=== PATIENT | female | born 1955 | race Caucasian/White ===

== ENCOUNTER 2018-02-03 14:26 | Observation (INO) | payer BC, OTHER ==
--- NOTE | 2018-02-03 17:38 | HP ---
PRIMARY CARE PHYSICIAN: Dr. Miquel Olmstead. CHIEF COMPLAINT: Dizziness and frequent falls. HISTORY OF PRESENT ILLNESS: Ms. Kang is a very pleasant 62-year-old female that has a history of caty betes mellitus, type 1. She also has a history of hypothyroidism. She says that, early this morning , she began feeling like the room was spinning. She says she would feel this way whether she moved o r did not move. Prior to this, in the last few days leading up to this, she would feel a little bit dizzy off and on, but usually it would only occur when she stood up. She had fallen a few times dorothy ier in the month. One time she fell and fractured her nose. She is not sure what happened. She bel ieves that her blood sugar might have gotten low in the middle of the night and she tried to get up, but she remembers waking up with blood all over the pillow and her head was wedged between the bed an d the dresser. Her daughter had to try to get her up and this is when she believes she fractured the ribs the first time. Then, she had another fall in the middle of the night and this resulted in mor e fractures of the ribs. She also says about a month or so ago, she did have some sinus infection an d she was treated with a Z-Jase, but those symptoms have resolved and she also feels like her problems could have been triggered by the daylight savings time change, as she says this happens to her every year and her blood sugars have gone out of control partially as a result of the daylight savings devin nge and then also as a result of changing her insulin from Humalog to NovoLog. The patient denies an y chest pains or shortness of breath. She denies any weakness in her upper extremities or lower extr emities, but she does feel off balance when she tries to walk. REVIEW OF SYSTEMS: Constitutional: Again, no fevers, no chills, no night sweats, no weight loss. H EENT: She denies any headache. She has had some blurred vision. She attributes to elevated blood g lucose. She had some sinus symptoms, but this is better after treatment. There was primarily nasal congestion, but there is no rhinorrhea currently. No sore throat, no neck pain, no adenopathy. Pulm onary: No hemoptysis, no cough, no wheezing. Cardiovascular: She denies any chest pain, no PND, no orthopnea. No lower extremity edema. Gastrointestinal: No abdominal pain, no nausea, no vomiting. She had some constipation, but this has resolved. No blood in the stools. Genitourinary: No urin priscilla frequency, hematuria, no hesitancy. Neurologic: No focal weakness or numbness, no seizures. PSYCHIATRIC: No symptoms of anxiety or depression. SKIN AND INTEGUMENT: No skin changes. No rash. PAST MEDICAL HISTORY: Significant for diabetes mellitus, type 1, with an insulin pump; hypothyroidis m; and she is on medication for blood pressure, but did not know if she has high blood pressure. PAST SURGICAL HISTORY: She has had a partial thyroidectomy, a lipoma removed from her arm, hysterect jamie in 2000, bowel resection and endometriosis with a surgery for bowel loops resection and also rese ction of endometriosis and reconstructive surgery. ALLERGIES: CODEINE AND IODINE. SOCIAL HISTORY: She is . She has 3 children. She is a nonsmoker, nondrinker. FAMILY HISTORY: Significant for multiple cancers in both parents. Her mother had 5 different types of cancer including bladder cancer, ovarian cancer, cervical cancer, skin cancer, and kidney cancer a nd her father had lung cancer and skin cancer. Her grandmother had colon cancer. CURRENT MEDICATIONS: Maxzide 37.5/25 daily, levothyroxine 125 mcg daily, red yeast rice daily, vitam in D3, biotin, Benadryl, Humalog as directed, aspirin 81 mg daily, Zetia 10 mg daily, alendronate 70 mg every week. PHYSICAL EXAMINATION: GENERAL: She is alert and oriented. She appears to be in no acute distress. VITAL SIGNS: Stable, blood pressure was 147/74, heart rate 66, respiratory rate is 16, temperature i s 98.4. HEENT: Pupils are equal, round, and reactive. Extraocular muscles are intact. Her sclerae are anic teric. There was no nystagmus. Throat: There is no erythema, no exudates. Uvula is midline. NECK: No adenopathy, no bruits. LUNGS: Clear to auscultation. There is no wheezing, no rales. CARDIOVASCULAR: She had a normal S1 and S2. I did not appreciate an S3 or S4. No murmurs, clicks, or rubs. ABDOMEN: Soft, nontender, nondistended. Positive for bowel sounds. There is no rebound, no guardin g. EXTREMITIES: There is no clubbing or cyanosis, no edema. NEUROLOGICALLY: Her cranial nerves II-XII are grossly intact. Muscle strength is 5/5 in both her up per and lower extremities. She was able to do [id number] without difficulty and also cjyysj-es-[id number] e was intact. Romberg was not performed, but she was reported to have a positive Romberg and a wide- based gait by the ER physician. LABORATORY RESULTS: Her white blood cell count is 6.2, hemoglobin 13.6, hematocrit is 39.6, platelet count is 207. Sodium 139, potassium 4.1, chloride is 100, CO2 is 29, BUN of 18, creatinine 1.2, glu cose is initially 307. Urinalysis was essentially negative. EKG was sinus rhythm. She had low volt age. The rate was 70. She had some poor R-wave progression in V1 through V3. ASSESSMENT AND PLAN: This is a pleasant 62-year-old female that presents with, 1. Dizziness, vertigo, and falls. She had a CT scan done in the outside ER, which was negative for evidence of infarct; however, her symptoms are more consistent with possible posterior circulation pr oblem and an MRI would be a better test to assess this. She also has risk factors including type 1 d iabetes for many years. She will therefore be placed on the stroke unit under observation. We will get an MRI of the brain to assess the cerebellum for stroke and then also get a CT angiogram to asses s her posterior circulation. Since there was some low voltage on EKG as well as some poor R-wave pro gression in V1 through V3, we will go ahead and order an echocardiogram as well, and with diabetes, s he could have ischemic heart disease, which can be silent. 2. For diabetes mellitus, allow her to use her diabetic pump and self correct. We can also have a b ackup with a sliding scale and consult Neurology if needed, based on the results of her test.
[2018-02-03] MEDS ORDERED: Milk Of Magnesia 30 ML UDCUP PO PRN (17:46)
[2018-02-03] MEDS ORDERED: hydrALAZINE 20 MG/ML VIAL SLOW IVP PRN (17:46)
[2018-02-03] MEDS ORDERED: Mag-Al 1200 mg/1200 mg/30 ML UDCUP PO PRN (17:46)
[2018-02-03] MEDS ORDERED: Acetaminophen 325 MG TAB PO PRN (17:46)
[2018-02-03] MEDS ORDERED: Dextrose 5% in Water 1,000 ML IV PRN (17:46)
[2018-02-03] MEDS ORDERED: HumaLOG 300 UNITS/3 ML VIAL SC PRN ×2 (17:46)
[2018-02-03] MEDS ORDERED: Dextrose 50% Abboject 50 ML SYRINGE SLOW IVP PRN (17:46)
[2018-02-03 17:48] VITALS: BMI 23.7
[2018-02-03] MEDS: predniSONE 50 MG TAB PO SCH (20:25)
[2018-02-03] MEDS: Atorvastatin Calcium 10 MG TAB PO SCH (20:27)
[2018-02-04] MEDS: predniSONE 50 MG TAB PO SCH ×2 (02:05→08:30)
[2018-02-04 05:45] LABS: #Lymphocytes 0.7 thou/uL (1.20-3.40); #Monocytes 0.1 thou/uL (0.11-0.59); #Neutrophils 5.1 thou/uL (1.40-6.50); %Basophils 0.4 % (0.0-1.0); %Eosinophils 0.3 % (0.0-10.0); %Lymphocytes 11.8 % (21.0-51.0); %Neutrophils 86.5 % (42.0-75.0); Hemoglobin 14.2 g/dL (12.0-16.0); Mean Corpuscular HGB CONC 33.4 g/dL (32.0-36.0); Mean Corpuscular Volume 89.9 fl (81.0-99.0); Mean Platelet Volume 8.5 fL (7.4-10.4); Platelet Count 225 thou/uL (130-400); RBC Distribution Width 12.5 % (11.5-14.5); Red Blood Cell (RBC) Count 4.72 mill/uL (4.20-5.40); White Blood Cell (WBC) Count 5.9 thou/uL (4.8-10.8)
[2018-02-04 06:10] LABS: Anion Gap 8 mmol/L (10-20); BUN (Urea Nitrogen) 24 mg/dL (9.8-20.1); Calc. Creatinine Clearance 60 mL/min (70-130); Calcium 9.3 mg/dL (7.8-10.44); Carbon Dioxide 30 mmol/L (23-31); Cardiac Risk 3.2 (Less than 4.5); Chloride 103 mmol/L (98-107); Cholesterol 240 mg/dl (< 200 Desired); Estimated GFR-MDRD 53; Glucose 217 mg/dL (80-115); HDL Cholesterol 74 mg/dL (>60 Neg Risk); LDL Cholesterol, Calculated 156 mg/dL; Potassium 4.1 mmol/L (3.5-5.1); Sodium 137 mmol/L (136-145); Triglycerides 49 mg/dL (Less than 150)
[2018-02-04] MEDS ORDERED: diphenhydrAMINE 50 MG CAP PO SCH (08:00)
[2018-02-04] MEDS ORDERED: Gadobenate Dimeglumine 529 MG/1 ML (20ML VIAL) ONE (08:12)
[2018-02-04] MEDS: Enoxaparin Sodium 40 MG/0.4 ML SYRINGE SC SCH (08:30)
[2018-02-04] MEDS: Aspirin 325 mg Enteric Coated Tablet PO SCH (08:30)
--- NOTE | 2018-02-04 13:12 | MRI ---
MRI OF BRAIN NONCONTRAST: INDICATION: TIA, the patient had a prior fall with injury. FINDINGS: There is no evidence of ventriculomegaly or midline shift. No intracranial mass effect or acute terr itorial infarction. There is multifocal signal abnormality of the brain parenchyma, the most notable of which involves the cortex and subcortical white matter of the mid to posterior left temporal lobe . There is no intracranial hemorrhagic susceptibility visualized. IMPRESSION: Nonspecific foci of signal alteration noted at the left mid to posterior temporal lobe. Recommend a followup postcontrast brain MRI to further evaluate. POS: SADE
--- NOTE | 2018-02-04 13:22 | CT ---
CT HEAD NONCONTRAST CTA [place] WITH 3D VOLUME RENDERING CTA NECK WITH 3D VOLUME RENDERING: CLINICAL HISTORY: TIA, CVA. Vertigo. Ference is made to preceding head CT of previous day. FINDINGS: A noncontrast head CT reveals no ventriculomegaly, mass effect, or midline shift. There is a subtle patchy area of decreased attenuation involving the mid left temporal lobe. Additional subtle areas o f cerebral white matter hypodensities are present. Evaluation of CTA portion of the neck reveals a patent aortic arch where visualized as well as patent great vessel origins that emanate from the aortic arch. Bilateral subclavian arteries are patent. There is no high-grade focal stenosis of the bilateral common or cervical internal carotid arteries. There is a dominant left vertebral artery. Vertebral arteries reveal no obvious stenosis or occlusi on. CTA imaging of the [place] reveals a -type variant circulation on the right. There is no high-grade stenosis or occlusion. No discrete aneurysm is seen involving the [place] wit hin limitations. There is a subtle area of hypodensity of the mid left temporal lobe with mild increased vascularity. This may be on the basis of vascular malformation and possibly associated steal phenomenon. There is granulomatous calcification of the right upper lung zone. Evidence of prior thyroid surgery is seen. Incidental note of mildly prominent regional lymph nodes, nonspecific. IMPRESSION: 1. Subtle area of patchy low attenuation of the mid left temporal lobe with surrounding increased va sculature which may be on the basis of vascular malformation and associated steal phenomenon, or alte rnatively this could relate to an underlying malignancy with associated angiogenesis. 2. There is otherwise no significant abnormality of the [place] or major arterial system of the neck identified. POS: SADE
--- NOTE | 2018-02-04 15:38 | PDOC.PN ---
- Subjective Encounter Start Date: 02/04/18 Encounter Start Time: 15:36 Ms. Kang was seen today in follow-up of ataxia. She says she was more steady on her feet today. She is also less dizzy. - Objective Resuscitation Status: Resuscitation Status FULL:Full Resuscitation MAR Reviewed: Yes Vital Signs & Weight: Vital Signs (12 hours) Temp Pulse Resp BP Pulse Ox 02/04/18 12:00 97.6 F 77 16 121/62 96 02/04/18 09:36 97.7 F 96 18 140/63 97 02/04/18 08:00 97.7 F 96 18 02/04/18 03:55 97.6 F 78 18 117/59 L 97 Weight Weight 154 lb I&O: 02/03/18 02/04/18 02/05/18 06:59 06:59 06:59 Intake Total 420 Balance 420 Result Diagrams: 02/04/18 05:18 02/04/18 05:18 Additional Labs: Accuchecks 02/04/18 02/04/18 02/04/18 14:22 11:47 06:02 POC Glucose 516 H 416 H 196 H 02/03/18 02/03/18 23:49 20:57 POC Glucose 137 H 71 Phys Exam - Physical Examination HEENT: PERRLA Respiratory: no wheezing, no rales, no rhonchi, clear to auscultation bilateral Cardiovascular: RRR, no significant murmur, no rub Gastrointestinal: soft, non-tender, positive bowel sounds Musculoskeletal: no edema Dx/Plan (1) Vertigo Code(s): R42 - DIZZINESS AND GIDDINESS Status: Acute (2) Diabetes mellitus type 1, uncontrolled Code(s): E10.65 - TYPE 1 DIABETES MELLITUS WITH HYPERGLYCEMIA Status: Acute (3) Hypothyroidism Code(s): E03.9 - HYPOTHYROIDISM, UNSPECIFIED Status: Acute - Plan * Vertigo- discussed with Dr. Martinez. Her symptoms are likely related to her elevated blood glucose * CTA and MRI findings were noted- she will have MRI with contrast to clarify. * DM- very labile- she will correct using the pump, and discuss adjusting her pump with Dr. Olmstead * Continue PT/OT
--- NOTE | 2018-02-04 15:43 | CON ---
DATE OF CONSULTATION: 02/04/2018 REFERRING PHYSICIAN: Luis Alfredo Vargas M.D. REASON FOR CONSULTATION: Vertigo and dizziness. HISTORY OF PRESENT ILLNESS: Ms. Kang is a pleasant 62-year-old female who has been concern ed for evaluation of dizziness and vertigo. She reports that on yesterday she woke up and had noted sudden onset of dizziness and vertigo-type sensation. She felt like everything was spinning. She wa s not able to stand up and maintain her balance and she would fall back down onto the bed. She had m easured her blood glucose, which came up very high and it was not recordable onto a monitor which usu ally suggests blood glucoses more than 600. She states that over the past 1 to 1-1/2 year, she has b een having very fluctuating levels of blood glucose. This has started after her insurance stopped gi ving her Humalog and had to be switched over to NovoLog from which she has not been well controlled. She states that about a month ago, she had gotten up to go to bathroom and fell down, which resulted in laceration to the left wrist and rib fractures on her right side. She had measured her blood glu cose at that time which was extremely low. Two weeks ago, she had another episode where she had fell , which resulted in nasal bone fracture and laceration along with rib fractures on the left side. Ag ain, this time her blood sugar was noted to be extremely low. She states that since her blood sugar has not been well maintained, she has these episodes of dizziness and vertigo-type sensation and diff iculty with gait imbalance. She has had numerous falls due to these episodes. She states that her b lood sugar has been under well control until the Humalog was changed to the NovoLog. She currently d enies any headache, chest pain, palpitation, numbness, tingling or weakness. Her symptoms of dizzine ss and vertigo have improved. PAST MEDICAL HISTORY: Significant for type 1 diabetes with insulin pump, hypothyroidism and hyperten ander. PAST SURGICAL HISTORY: Significant for partial thyroidectomy, lipoma removal, hysterectomy, bowel re section, reconstruction surgery for endometriosis. SOCIAL HISTORY: She denies smoking, alcohol use, or illicit drug use. She is currently working. FAMILY HISTORY: Noncontributory. CURRENT MEDICATIONS: Please review MAR. ALLERGIES: Include CODEINE, IODINATED CONTRAST AGENT, SHELL FISH, DAIRY PRODUCTS. REVIEW OF SYSTEMS: As mentioned above in the HPI, otherwise negative. PHYSICAL EXAMINATION: VITAL SIGNS: Blood pressure of 121/62, pulse of 77, temperature of 97.6, respirations of 16, O2 sats of 96% on room air. GENERAL: Well-developed, well-nourished female in no apparent distress. RESPIRATORY: Clear to auscultation bilaterally. CARDIOVASCULAR: Regular rate and rhythm. NEUROLOGIC: Mental status: The patient is awake, alert, and oriented x3. Speech and language: Flu ent speech. Cranial nerves: Pupils are 3 mm and reactive. Visual lee are intact. External musc les are intact. No nystagmus. Face is symmetric. Tongue and uvula are midline. Motor exam showed normal tone and bulk with a 5/5 strength in both upper and lower extremities. Sensory: Sensation is intact and symmetric. Deep tendon reflexes 2+ flexion with upper and lower extremities. Babinski: Plantar responses flexion bilaterally. Coordination intact to [id number]-[id number] and finger tapping bilaterally. LABORATORY DATA: Reviewed, which included CBC and CMP, which is significant for glucose of 560, tota l cholesterol of 240, LDL of 156, HDL of 74, triglycerides of 49, otherwise unremarkable. IMAGING STUDIES: MRI brain without contrast was reviewed which showed no acute intracranial artery. There is signal alteration noted in the left mid to posterior temporal lobe. CT angiogram of the he ad and neck were reviewed, which showed no acute intracranial or extracranial vascular abnormality. There is a subtle area of patchy low attenuation in the mid left temporal lobe with surrounding incre ased vasculature which may be suggestive of a vascular malformation. IMPRESSION: 1. Vertigo. 2. Hyperglycemia. ASSESSMENT AND PLAN: Ms. Kang is a pleasant 62-year-old female who presented with episodes of vertigo and dizziness. She had this episode in conjunction with severely elevated blood sugar. In my opinion, her symptoms are likely contributed by elevated blood glucose. I had a long discussio n with her and explained that she needs to discuss with her primary care physician to adjust her insu loraine pump to have a better control of her blood glucose. I would recommend continuing her on aspirin 81 mg daily for secondary stroke prevention. She may need to be started on an antihyperlipidemic age nt either atorvastatin or rosuvastatin to control her elevated cholesterol. We will order MRI brain with contrast as recommended by Radiology; however, in my opinion, this is likely secondary to vascul ar malformation. Continue supportive care. Thank you for consultation.
[2018-02-04] MEDS: Atorvastatin Calcium 10 MG TAB PO SCH (20:31)
[2018-02-04] MEDS ORDERED: Temazepam 15 MG CAP PO SCH (22:00)
--- NOTE | 2018-02-04 22:46 | MRI ---
MRI OF THE BRAIN WITH IV CONTRAST: 02/04/18 INDICATION: Followup abnormal lesion seen on the noncontrast MR performed earlier on 02/04/18. TECHNIQUE: Multiplanar and multisequence MRI images were obtained of the brain with 14 mL of Multihance. Comparisons are made with the CTA of the head dated 02/05/08 and a noncontrast MRI of the brain dated 02/04/18. Comparison is also made with a noncontrast CT of the brain dated 02/04/18. FINDINGS: The focal region of cortical and subcortical white matter, T2 hyperintensity involving the left tempo ral lobe measuring 1.9 cm demonstrates no corresponding enhancement. No additional area of enhanceme nt is noted. The visualized IACs appear within normal limits. Septum pellucidum and third ventricle a re midline. Skull and extracranial soft tissues are within normal limits. IMPRESSION: No appreciable enhancement involving the cortical and subcortical white matter T2 hyperintensity invo lving the left mid temporal lobe on the prior examination. There was no associated restricted diffusi on or hemorrhagic changes. There is no associated calcifications. Findings are suspicious for possibl e low grade astrocytoma. An atypical cerebritis is felt to be less likely. Neurology consultation and MRI followup to document stability is recommended. POS: SADE
[2018-02-05] MEDS ORDERED: Levothyroxine Sodium 125 MCG TAB PO SCH (06:00)
[2018-02-05] MEDS: Enoxaparin Sodium 40 MG/0.4 ML SYRINGE SC SCH (08:38)
[2018-02-05] MEDS: Aspirin 325 mg Enteric Coated Tablet PO SCH (08:38)
[2018-02-05 11:37] VITALS: TEMP 97.2
[2018-02-05 12:12] VITALS: BP 120/56
--- NOTE | 2018-02-05 12:35 | PDOC.PN ---
- Subjective Encounter Start Date: 02/05/18 Encounter Start Time: 09:15 Subjective: no weakness or dizziness, is amb independently in hallway -: wants to go home - Objective Resuscitation Status: Resuscitation Status FULL:Full Resuscitation MAR Reviewed: Yes Vital Signs & Weight: Vital Signs (12 hours) Temp Pulse Pulse Pulse Resp BP BP 02/05/18 11:15 97.2 F L 73 17 124/58 L 02/05/18 08:50 84 84 120/56 L 02/05/18 08:02 97.8 F 75 16 02/05/18 08:00 97.8 F 75 16 02/05/18 04:29 98.1 F 71 16 BP BP Pulse Ox 02/05/18 11:15 02/05/18 08:50 143/63 H 02/05/18 08:02 02/05/18 08:00 117/58 L 98 02/05/18 04:29 135/72 98 Weight Weight 154 lb I&O: 02/04/18 02/05/18 02/06/18 06:59 06:59 06:59 Intake Total 420 640 Balance 420 640 Result Diagrams: 02/04/18 05:18 02/04/18 05:18 Additional Labs: Accuchecks 02/05/18 02/05/18 02/05/18 11:17 04:35 00:39 POC Glucose 355 H 199 H 330 H 02/04/18 02/04/18 21:36 14:22 POC Glucose 351 H 516 H Phys Exam - Physical Examination HEENT: PERRLA, moist MMs Neck: no JVD, supple Respiratory: no wheezing, no rales Cardiovascular: RRR, no significant murmur Gastrointestinal: soft, non-tender, positive bowel sounds Musculoskeletal: no edema, pulses present Neurological: non-focal, moves all 4 limbs Psychiatric: A&O x 3 Dx/Plan (1) Dizziness Code(s): R42 - DIZZINESS AND GIDDINESS Status: Resolved (2) Dyslipidemia Code(s): E78.5 - HYPERLIPIDEMIA, UNSPECIFIED Status: Chronic (3) Diabetes mellitus type 1, uncontrolled Code(s): E10.65 - TYPE 1 DIABETES MELLITUS WITH HYPERGLYCEMIA Status: Chronic Qualifiers: Diabetes mellitus complication status: with hyperglycemia Qualified Code(s) : E10.65 - Type 1 diabetes mellitus with hyperglycemia (4) Hypothyroidism Code(s): E03.9 - HYPOTHYROIDISM, UNSPECIFIED Status: Chronic Qualifiers: Hypothyroidism type: unspecified Qualified Code(s): E03.9 - Hypothyroidism , unspecified - Plan hemo/neurostable -: dc pt home -: counselled reg hypoglycemia * . Review of Systems - Medications/Allergies Allergies/Adverse Reactions: Allergies Allergy/AdvReac Type Severity Reaction Status Date / Time codeine Allergy Verified 02/03/18 17:50 Iodinated Contrast- Oral and Allergy Verified 02/03/18 18:34 IV Dye shellfish derived Allergy Verified 02/03/18 17:52
--- NOTE | 2018-02-05 20:21 | DIS ---
DATE OF ADMISSION: 02/03/2018 DATE OF DISCHARGE: 02/05/2018 DISCHARGE DISPOSITION: To home. PRIMARY DISCHARGE DIAGNOSIS: Dizziness, resolved. SECONDARY DISCHARGE DIAGNOSES: Dyslipidemia; hypothyroidism; diabetes mellitus type 1, which is labile. PROCEDURES DONE DURING HOSPITALIZATION: The patient has had MRI brain without contrast done, showed nonspecific foci of signal alteration seen in left mid to posterior temporal lobe. She has had MRI brain with contrast done, showed there was no appreciable enhancement involving cortical and subcortical white matter, T2 hyperintensity in the left mid temporal lobe. There is no restricted diffusion or hemorrhagic changes seen. Findings were suspicious for possible low-grade astrocytoma. The patient had a CT angiogram of the brain done, which showed subtle area of patchy low attenuation of the mid left temporal lobe with surrounding increased vasculature, which may be on the basis of vascular malformation and associated steal phenomenon. There is no significant abnormality of [place] or major arterial system of the neck identified. Echo with 2D Doppler showed an EF of 60%-65%. There was no thrombus seen in the cardiac chambers. H&H 14 and 42, platelet count 225. Total cholesterol 240, triglycerides 49, LDL 156, HDL 74. DISCHARGE MEDICATIONS: Aspirin 81 mg p.o. daily; alendronate 70 mg p.o. once a week; Lipitor 20 mg p.o. daily; vitamin D3, 5000 units p.o. at bedtime; Zetia 10 mg p.o. at bedtime; NovoLog insulin pump; levothyroxine 125 mcg p.o. daily; multivitamin 1 tab daily. ALLERGIES: CODEINE and IODINE. She is also allergic to SHELLFISH. INPATIENT CONSULTS: Dr. Martinez for Neurology. DISCHARGE PLAN: The patient to follow up with primary care physician in 1 week , Dr. Martinez as advised. BRIEF COURSE DURING HOSPITALIZATION: The patient initially got admitted on the with complaints of dizziness and frequent falls. The patient has had uncontrolled diabetes. She also mentions that she took a dose of steroids, which has made her diabetes very labile since then. Initial MRI brain was suspicious for signal alteration in the left mid to posterior temporal lobe. In view of this, MRI with contrast and CT angio brain imaging were done. 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 During the course of her stay here, the patient's dizziness completely resolved. She is ambulating independently in the hallway. Her diabetes is slowly coming back to her baseline. The patient is manipulating her insulin pump to establish euglycemia. She is clearly aware of hypoglycemia symptoms and carries sugar cubes with her belongings wherever she goes. The patient definitely needs followup with Dr. Martinez in 4-6 weeks, and likely further imaging of the abnormality seen in the temporal lobe. I have d/w and he will arrange for f/u. She is currently hemodynamically and neurologically stable and will be discharged home. Please see a [id number] documentation on [facility] for the day of discharge. BRITTNEYD
== END 2018-02-05 11:23 | disposition home or self-care (01) ==
LOC: ERS 14:26 → INTOOBSV 15:42 → 2SE 15:42
PROVIDERS: ADMIT Internal Medicine; ATTEND Internal Medicine
DX: R42 Dizziness and giddiness (principal); E78.5 Hyperlipidemia, unspecified; E10.65 Type 1 diabetes mellitus with hyperglycemia; E89.0 Postprocedural hypothyroidism; Z96.41 Presence of insulin pump (external) (internal); Z88.5 Allergy status to narcotic agent; Z91.013 Allergy to seafood; Z91.041 Radiographic dye allergy status; Z79.83 Long term (current) use of bisphosphonates; Z79.82 Long term (current) use of aspirin; Z79.899 Other long term (current) drug therapy
CPT/HCPCS: 36415; 36416; 70496; 70498; 70551; 70552; 80048; 80061; 85025; 93306; 96372; 99285; A9579; G0378; G8978-GP-CJ; G8979-GP-CI; J1650

== ENCOUNTER 2018-05-06 17:27 | Emergency (ER) | payer BC ==
[2018-05-06] MEDS ORDERED: Mag-Al Plus 1200 MG/1200 MG/120 MG/30 ML UDCUP ONE (17:53)
[2018-05-06] MEDS ORDERED: Lidocaine Viscous Sol 2% 15 ml UD Cup ONE (17:53)
[2018-05-06] MEDS ORDERED: Famotidine/PF 20 mg/2ml Vial ONE (17:53)
[2018-05-06 18:04] LABS: #Basophils 0.1 thou/uL (0.0-0.2); #Eosinphils 0.4 thou/uL (0.0-0.7); #Lymphocytes 2.2 thou/uL (1.20-3.40); #Monocytes 0.8 thou/uL (0.11-0.59); #Neutrophils 5.5 thou/uL (1.40-6.50); %Basophils 1.3 % (0.0-1.0); %Eosinophils 4.2 % (0.0-10.0); %Lymphocytes 24.9 % (21.0-51.0); %Monocytes 8.5 % (0.0-10.0); %Neutrophils 61.1 % (42.0-75.0); Hemoglobin 14.8 g/dL (12.0-16.0); Mean Corpuscular HGB CONC 35.4 g/dL (32.0-36.0); Mean Corpuscular Hemoglobin 30.7 pg (27.0-31.0); Mean Corpuscular Volume 86.6 fL (78.0-98.0); Mean Platelet Volume 10.7 fL (7.4-10.4); Platelet Count 178 thou/uL (130-400); RBC Distribution Width 11.6 % (11.5-14.5); Red Blood Cell (RBC) Count 4.83 mill/uL (4.20-5.40)
[2018-05-06 18:12] LABS: ALT (SGPT) 25 U/L (8-55); AST (SGOT) 22 U/L (5-34); Albumin 4.2 g/dL (3.4-4.8); Alkaline Phosphatase 70 U/L (40-150); Anion Gap 15 mmol/L (10-20); BUN (Urea Nitrogen) 22 mg/dL (9.8-20.1); Bilirubin, Total 0.8 mg/dL (0.2-1.2); CK (CPK) 167 U/L (29-168); CKMB 1.7 ng/mL (0-6.6); Calc. Creatinine Clearance 0 mL/min (70-130); Calcium 9.9 mg/dL (7.8-10.44); Carbon Dioxide 29 mmol/L (23-31); Chloride 96 mmol/L (98-107); Estimated GFR-MDRD 43; Globulin 2.7 g/dL (2.4-3.5); Glucose 230 mg/dL (80-115); Lipase 49 U/L (8-78); Protein, Total 6.9 g/dL (6.0-8.3); Sodium 136 mmol/L (136-145); Troponin I Less than 0.010 ng/mL (< 0.028)
[2018-05-06 18:30] LABS: Bilirubin Negative (Negative); Blood, Urine Trace (Negative); Clarity Hazy (Clear); Glucose, Urine (Dipstick) 250 mg/dL (Negative); Leukocyte Negative (Negative); Nitrite Negative (Negative); Protein, Urine (Dipstick) Negative (Neg-Trace); Specific Gravity, Urine 1.015 (1.005-1.030); Urobilinogen 0.2 mg/dL (0.2-1.0)
[2018-05-06 18:37] LABS: Bacteria/HPF Rare-Few HPF (None Seen); RBC/HPF 0-3 HPF (0-3); WBC/HPF None Seen HPF (0-3)
--- NOTE | 2018-05-06 18:47 | CT ---
CT ABDOMEN WITHOUT CONTRAST CT PELVIS WITHOUT CONTRAST 05/06/18 HISTORY: Pain. Burning sensation. TECHNIQUE: Abdomen and pelvic CT are performed without IV contrast. Contrast was not given due to a reported all ergy. FINDINGS: ABDOMEN CT: Lung bases are clear. Normal heart size. No pericardial effusion. The visualized aorta has a normal c aliber. No periaortic fat stranding. There is symmetric attenuation of the psoas muscles. Contracted gallbladder. Grossly unremarkable solid organs. Evaluation is limited by technique. No mesenteric mass, lymphadenopathy, free air or free fluid. No gastrohepatic, retrocrural, or periportal lymphadenopathy. Bilaterally, no evidence of obstructive uropathy. Limited evaluation of the alimentary canal due to lack of oral contrast. Gastric mucosa, duodenum, an d multiple normal caliber small bowel loops are noted. No definite evidence of small bowel obstructio n. Ileocecal junction is normal. Appendix is not appreciated. No inflammation of the cecal apex. Deco mpressed colon. Scattered fecal material is present. Occasional diverticulum. No diverticulitis. PELVIC CT: No mass, lymphadenopathy, free air or free fluid. The urinary bladder is unremarkable. Surgically abs ent uterus. No lytic or blastic lesions in the osseous structures. IMPRESSION: 1. No evidence of nephrolithiasis or obstructive uropathy. 2. Nonspecific bowel gas pattern. 3. Diverticulosis. No diverticulitis. 4. Appendix is not appreciated. Nevertheless, no inflammation of the cecal apex. POS: [facility]
[2018-05-06] MEDS ORDERED: Pantoprazole 40 MG VIAL ONE (19:19)
== END 2018-05-06 19:29 | disposition home or self-care (01) ==
LOC: SCSER 17:27
DX: K29.00 Acute gastritis without bleeding (principal); E10.9 Type 1 diabetes mellitus without complications; E03.9 Hypothyroidism, unspecified; I10 Essential (primary) hypertension; M81.0 Age-related osteoporosis without current pathological fracture; Z79.4 Long term (current) use of insulin; Z79.899 Other long term (current) drug therapy; Z79.01 Long term (current) use of anticoagulants
CPT/HCPCS: 36416; 74176; 80053; 81003; 81015; 82010; 82550; 82553; 83690; 84484; 85025; 93005; 96361; 96374; 96375; C9113; S0028

== ENCOUNTER 2018-05-30 08:59 | Outpatient (CLI) | payer BC ==
[2018-05-30] MEDS ORDERED: Gadobenate Dimeglumine 529 MG/1 ML (20ML VIAL) ONE (09:00)
--- NOTE | 2018-05-30 12:53 | MRI ---
MRI BRAIN WITH AND WITHOUT IV CONTRAST: 05/30/2018 HISTORY: Temporal lobe lesion. Follow-up evaluation. COMPARISON: Prior pre and post contrast MRI brain on 02/04/2018. FINDINGS: The previously described T2 increased signal abnormality in the left temporal lobe is again seen and is grossly stable in size and appearance, compared to the prior exam. There is no abnormal enhanceme nt seen in this region after the administration of intravenous contrast. There are a few punctate and patchy areas of increased FLAIR and T2 weighted signal intensity again s een in the periventricular and subcortical white matter, which are nonspecific but likely reflective of chronic small vessel ischemic changes. There is no evidence of an acute infarction. The septum pellucidum and third ventricle are in the midline. The ventricular system is normal in si ze, shape, and position. Mucosal thickening is seen in the left maxillary antrum. [place] lenses of each lobe are not present. There has been no interval change compared to the prior exam. IMPRESSION: Grossly stable signal alteration within the left mid to posterior temporal lobe, which, again, does n ot demonstrate enhancement. 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 Continued followup is recommended. POS: SADE
== END 2018-05-30 09:00 | disposition home or self-care (01) ==
LOC: SCSMRI 08:59
PROVIDERS: ATTEND Neurological Surgery
DX: G93.89 Other specified disorders of brain (principal)
CPT/HCPCS: 70553; 82565; A9579

== ENCOUNTER 2018-09-13 10:32 | Inpatient (IN) | payer MEDICARE ==
[2018-09-13 10:56] LABS: Bilirubin Negative (Negative); Blood, Urine Negative (Negative); Clarity CLEAR (Clear); Glucose, Urine (Dipstick) >=1000 mg/dL (Negative); Leukocyte Negative (Negative); Nitrite Negative (Negative); Protein, Urine (Dipstick) Negative (Neg-Trace); Specific Gravity, Urine 1.023 (1.002-1.036)
[2018-09-13 11:22] LABS: ALT (SGPT) 32 U/L (8-55); AST (SGOT) 22 U/L (5-34); Albumin 3.4 g/dL (3.4-4.8); Alkaline Phosphatase 136 U/L (40-150); Anion Gap 38 mmol/L (10-20); BUN (Urea Nitrogen) 58 mg/dL (9.8-20.1); Bilirubin, Total 0.8 mg/dL (0.2-1.2); Calc. Creatinine Clearance 0 mL/min (70-130); Calcium 8.7 mg/dL (7.8-10.44); Carbon Dioxide 10 mmol/L (23-31); Chloride 88 mmol/L (98-107); Estimated GFR-MDRD 14; Globulin 2.8 g/dL (2.4-3.5); Magnesium 2.7 mg/dL (1.6-2.6); Potassium 6.1 mmol/L (3.5-5.1); Protein, Total 6.2 g/dL (6.0-8.3); Sodium 130 mmol/L (136-145)
[2018-09-13 11:25] LABS: Glucose 1272 mg/dL (80-115)
[2018-09-13 11:30] LABS: Troponin I 0.336 ng/mL (< 0.028)
[2018-09-13] MEDS ORDERED: Insulin Regular 300 UNITS/3 ML VIAL ONE (11:49)
[2018-09-13] MEDS ORDERED: Insulin Regular 100 units/100 ml in NS IVPB SCH (12:00)
[2018-09-13 12:08] LABS: Bicarbonate (HCO3v) 10.7 mmol/L (1.0-85.0); CO2 Tension (PvCO2) 31.1 mmHg (41.0-51.0); Calcium, Ionized 0.95 mmol/L (1.12-1.32); Hemoglobin - Calc 12.2 g/dL (12.0-18.0); O2 Tension (PvO2) 35.9 mmHg (35.0-45.0); Potassium 5.6 mmol/L (3.4-4.7); T. Carbon Dioxide 11.7 mmol/L (1.0-85.0); pH (Venous) 7.146 (7.35-7.45); vO2 Saturation-calc 53.5 % (94-98)
[2018-09-13 12:54] LABS: Glucose Accucheck Confirmation 1215 mg/dl (80-115)
[2018-09-13] MEDS ORDERED: Dextrose 5 %-0.45 % NaCl 1,000 ML IV PRN (13:58)
[2018-09-13] MEDS ORDERED: D5 1/2 NS w/20 mEq KCL 1,000 ML IV PRN ×2 (13:58→22:39)
[2018-09-13] MEDS ORDERED: Sodium Chloride 0.65% Nasal 44 ML BOT EA NARE PRN (13:58)
[2018-09-13] MEDS ORDERED: Ondansetron ODT 4 MG TAB SL PRN (13:58)
[2018-09-13] MEDS ORDERED: Sodium Chloride 0.9% 1,000 ML IV PRN ×4 (13:58)
[2018-09-13] MEDS ORDERED: Eucerin (Mineral Oil/Petrolatum,White) 30 gm Jar TOP PRN (13:58)
[2018-09-13] MEDS ORDERED: Acetaminophen 325 MG TAB PO PRN (13:58)
[2018-09-13] MEDS ORDERED: CCU Electrolyte Replacement 1 EACH IVPB ONE (13:58)
[2018-09-13] MEDS ORDERED: Ondansetron PF 4 MG/2 ML Vial IVP PRN (13:58)
[2018-09-13] MEDS ORDERED: Artificial Tears 18 DROP/0.9 ML EA EYE PRN (13:58)
[2018-09-13] MEDS ORDERED: Bisacodyl 10 MG SUPP PR PRN (13:58)
[2018-09-13] MEDS ORDERED: NS 0.9% w/ 20 MEQ KCL 1,000 ML IV PRN ×2 (13:58)
[2018-09-13] MEDS ORDERED: Acetaminophen 650 MG Suppository PR PRN (13:58)
[2018-09-13] MEDS ORDERED: Cepastat Lozenges 1 LOZ PO PRN (13:58)
[2018-09-13] MEDS ORDERED: hydrALAZINE 20 MG/ML VIAL SLOW IVP PRN (13:58)
[2018-09-13] MEDS ORDERED: Diabetic Tussin 200 MG/10 ML UDCUP PO PRN (13:58)
[2018-09-13 13:59] LABS: Hemoglobin 10.9 g/dL (12.0-16.0); Mean Corpuscular HGB CONC 29.9 g/dL (32.0-36.0); Mean Corpuscular Hemoglobin 31.7 pg (27.0-31.0); Mean Platelet Volume 10.7 fL (7.4-10.4); Platelet Count 282 thou/uL (130-400); RBC Distribution Width 12.4 % (11.5-14.5); Red Blood Cell (RBC) Count 3.43 mill/uL (4.20-5.40); White Blood Cell (WBC) Count 19.9 thou/uL (4.8-10.8)
--- NOTE | 2018-09-13 14:04 | HP ---
DATE OF ADMISSION: 09/13/2018 PRIMARY CARE PHYSICIAN: Miquel Olmstead M.D. REASON FOR ADMISSION: Diabetic ketoacidosis type 1, hyperglycemic hyperosmolar ketotic coma, acute m etabolic encephalopathy, acute kidney failure. HISTORY OF PRESENT ILLNESS: A 63-year-old female who has underlying history of diabetes type 1 on in [facility], who was brought to emergency room for altered mental status. This patient is lethargic and dr owens, responds with grimace as well as incoherent sound with stimuli, but she is not following any co mmands, so she is not able to provide any history, so most of the history obtained from emergency [facility] record. Family member present at bedside. They also do not have any detailed information. This patient has a history of diabetes type 1 on insulin for a long period of time. Initially, she w as used to follow up with sales and marketing manager, Dr. Nava, but lately it is managed by primary care gisela dolan. As per report, the patient has a history of diabetes type 1 on insulin pump. She also has a history of hypertension and hypothyroidism. Today in the emergency room, routine evaluation showed severe ke tosis with beta hydroxybutyrate 9.04. She had acute kidney failure with creatinine 3.25. In April, h er creatinine was completely normal. She also has metabolic acidosis, hyperkalemia and other abnorma l electrolytes. She also has elevated troponin. Her urinalysis showing ketosis and glycosuria. REVIEW OF SYSTEMS: All review of systems tried to be reviewed with the patient, but unable to review at this point because of altered mental status. ADDITIONAL INFORMATION: This morning, the patient's blood sugar was reporting high and the patient w as not responding to questions and that is why daughter gave her 18 units of insulin this morning bef ore coming to the emergency room. Paramedics gave her 400 mL of NS on the route. EMERGENCY ROOM COURSE: So far, the patient has received 4 liters of IV fluid and the patient started making some urine. Her diaper was wet after this much fluid and fourth liter was running at 250 mL per hour. She was started on insulin drip. As per nursing, the patient started responding a little bit better than when she arrived to emergency room, but still she was not able to make comprehensive talk. PAST MEDICAL HISTORY: Diabetes type 1 on insulin pump, hypothyroidism, hypertension, osteoporosis, d yslipidemia. PAST SURGICAL HISTORY: Partial thyroidectomy, lipoma removed from the arm, hysterectomy in 2000, bow el resection, endometriosis surgery. PAST PSYCHIATRIC HISTORY: Reviewed and negative. ALLERGIES: The patient is allergic to CODEINE and IODINE. SOCIAL HISTORY: The patient is . She has 3 children. As per report, the patient is nonsmoke r and nonalcoholic. No other illicit drug abuse. She lives at home. FAMILY HISTORY: As per report, multiple cancer runs in both parents. Mother had bladder, ovarian, c ervical cancer as well as skin and kidney cancer. Father had lung and skin cancer. Grandmother had colon cancer. CURRENT HOME MEDICATIONS: Aspirin 81 mg daily, Synthroid 137 mcg p.o. daily, insulin. As per our pr evious discharge summary, the patient was on also Fosamax 70 mg every week, aspirin 81 mg daily, biot in 1000 mcg daily, calcium with vitamin D 2 tablets daily, vitamin D3 5000 units daily, Zetia 10 mg p .o. at bedtime, Synthroid 125 mcg p.o. daily, Lipitor 20 mg p.o. daily. Above-mentioned medication h as not been verified because family member did not bring medication with them. PHYSICAL EXAMINATION: VITAL SIGNS: Currently, blood pressure 101/43, pulse 91, respiratory rate 27, temperature 97.5, satu ration 96% on room air, weight 68.4 kilograms. GENERAL: The patient is currently unresponsive. Arousable on noxious stimuli. Completely incoheren t and unable to understand her talk, ketotic smell, relatively hypotensive. HEAD: Normocephalic, atraumatic. EYES: Pupils round and reactive to light. Extraocular muscle intact. ENT: Dry mucous membranes. No oral lesion, no pharyngeal erythema, no exudate. NECK: Supple. No JVD, no thyromegaly, no carotid bruit. LUNGS: Clear to auscultation without any rhonchi or rales, but tachypneic. CARDIAC: S1, S2 regular without any murmur. No gallop, no rub. ABDOMEN: Patient's bowel sounds are present. No organomegaly, no mass, no distention. No suprapubi c discomfort noted. BACK: Unremarkable. No CVA tenderness. EXTREMITIES: Upper extremities, passive movement of all joints are normal. Lower extremities, no ed [place]. Good distal pulsation. SKIN: No skin rash. HEMATOLOGICAL: No lymphadenopathy. NEUROLOGIC: At this point, the patient is stuporous. Responds only minimally with stimuli, not able to make any comprehensive speech. Unable to do a detailed neurological examination because of menta l status. SIGNIFICANT LABORATORY DATA: EKG showing normal sinus rhythm, nonspecific ST-T changes. CBC not rep orted yet. CMP, sodium 130, potassium 6.1, chloride 88, carbon dioxide 18, anion gap 38, BUN 58, cre atinine 3.25, glucose 1272, calcium 8.7, magnesium 2.7. LFT, AST 22, ALT 32, alkaline phosphatase 13 6, albumin 3.4. CK-MB 6.0. Troponin I, 0.336. Serum ketones 9.04. [facility] reviewed. We are going to order CBC as well as chest x-ray as well as urine cult ure. ASSESSMENT AND PLAN: 1. Acute diabetic ketoacidosis, type 1, uncontrolled, associated with hyperglycemic hyperosmolar ket otic coma. Because of severity of illness, the patient will be admitted in CCU. We will manage grad ually and control blood sugar slowly to prevent any cerebral edema and any pulmonary edema. We will closely monitor in CCU. Diabetic ketoacidosis protocol order will be initiated. Pulmonary and Criti abdoulaye Care will be consulted for assisting management. We will monitor BMP, electrolytes, ketones ever y 4 hourly as per protocol. We will continue insulin drip and monitor Accu-Chek every hourly. We wi ll titrate insulin drip based on Accu-Chek. We will replace electrolytes as needed basis. Whenever blood sugar drops to below 250, at that point, we will change IV fluid to dextrose with NS to washout ketones. This patient will require significant nursing care until she is stabilized and that is why she needs ICU care. 2. Acute kidney failure, likely due to osmotic diuresis and prerenal etiology. The patient will req uire aggressive IV fluid and avoidance of nephrotoxin agent. We are expecting with IV fluid, her opal al function should improve. 3. Anion gap acidosis due to ketosis and renal failure. We will monitor renal function. We will do ABG and depending upon ABG, we will decide whether she needs any bicarbonate. 4. Hyperkalemia and other electrolytes abnormality related with diabetic ketoacidosis. As mentioned above, based on protocol treatment, we will monitor electrolytes and replace accordingly. Currently , hyperkalemia is related with metabolic acidosis and hyponatremia related with pseudohyponatremia. 5. Demand ischemia of myocardium. This patient's echocardiogram is not showing any ischemic changes , but we will do serial cardiac enzymes x3. We will consult Cardiology. This patient already had ec hocardiography in 01/2018, which showed normal EF. Further decision, we will defer to Cardiology. 6. Dyslipidemia. We will continue Zetia and Lipitor as per home dosage. 7. Hypothyroidism. We will continue Synthroid 125 mcg p.o. daily. 8. Acute metabolic encephalopathy due to hyperglycemic hyperosmolar ketotic coma. The patient will be closely monitored in the CCU. She does not have any focal lateralization based on my examination. We will closely monitor and avoid any rapid correction of blood sugar to prevent cerebral edema. 9. Deep venous thrombosis prophylaxis, heparin 5000 units subcu twice daily. 10. Gastrointestinal prophylaxis, Protonix 40 mg IV daily. 11. Code status, the patient will be full code and the patient's daughter present at bedside is surr ogemma decision maker. Disposition plan based on clinical course. Total time spent providing critical care to this patient in the emergency room, 35 minutes.
[2018-09-13 14:10] VITALS: BMI 22.4
--- NOTE | 2018-09-13 14:11 | RAD ---
FRONTAL VIEW CHEST: Indication: DKA, hyperglycemia. FINDINGS: There is bilateral perihilar interstitial prominence. No effusion or discrete pneumothorax. Mild patc hy left basilar opacity is seen. Cardiac silhouette is accentuated with portable technique. There are chronic appearing rib deformities of the right chest. IMPRESSION: Findings which may relate to a mild degree of edema. Correlate clinically. Imaging follow up may prov e useful for continued assessment. POS: TALI
[2018-09-13 14:27] LABS: #Eosinphils 0.2 thou/uL (0.0-0.7); #Lymphocytes 0.8 thou/uL (1.20-3.40); #Monocytes 1.5 thou/uL (0.11-0.59); #Neutrophils 17.3 thou/uL (1.40-6.50); %Basophils 0.1 % (0.0-1.0); %Eosinophils 1.2 % (0.0-10.0); %Lymphocytes 4.2 % (21.0-51.0); %Monocytes 7.5 % (0.0-10.0); Hypochromia SLIGHT = 6-15 cells (100X) (0-5/hpf); MDiff Complete? YES; Macrocytosis SLIGHT = 6-15 cells (100X) (0-5/hpf); PLT Morphology Comment Appears Adequate
[2018-09-13 14:43] LABS: Anion Gap 29 mmol/L (10-20); BUN (Urea Nitrogen) 55 mg/dL (9.8-20.1); Calc. Creatinine Clearance 21 mL/min (70-130); Calcium 7.6 mg/dL (7.8-10.44); Carbon Dioxide 11 mmol/L (23-31); Chloride 100 mmol/L (98-107); Estimated GFR-MDRD 17; Sodium 136 mmol/L (136-145)
[2018-09-13] MEDS ORDERED: Potassium Phosphate 9 MMOL in Sodium Chloride 0.9% 100 ML IVPB PRN (14:45)
[2018-09-13] MEDS ORDERED: Potassium Chloride 40 MEQ in Sodium Chloride 0.9% 250 ML 250 ML IVPB PRN (14:45)
[2018-09-13] MEDS ORDERED: Potassium Phosphate 15 MMOL in Sodium Chloride 0.9% 250 ML 250 ML IV PRN (14:45)
[2018-09-13] MEDS ORDERED: Potassium Chloride 40 MEQ in Premix Bag 1 BAG IVPB PRN (14:45)
[2018-09-13] MEDS ORDERED: CCU ELECTROLYTE REPLACEMENT PROTOCOL FS PRN (14:45)
[2018-09-13] MEDS ORDERED: Potassium Chloride 20 MEQ TAB PO PRN (14:45)
[2018-09-13] MEDS ORDERED: Potassium Phosphate 12 MMOL in Sodium Chloride 0.9% 250 ML 250 ML IV PRN (14:45)
[2018-09-13] MEDS ORDERED: Magnesium 2 GM/NS 0.9% 100 ML 2 GM in Premix Bag 1 BAG IVPB PRN (14:45)
[2018-09-13] MEDS ORDERED: Magnesium Oxide 400 MG TAB PO PRN ×2 (14:45)
[2018-09-13] MEDS ORDERED: Prevnar 13-Val Conj/PF 0.5 ML SYRINGE IM ONE (14:45)
[2018-09-13 14:50] LABS: Glucose 970 mg/dL (80-115)
[2018-09-13 14:52] LABS: Troponin I 0.392 ng/mL (< 0.028)
[2018-09-13] MEDS: Heparin 5,000 UNITS/ML VIAL SC SCH ×2 (16:38→20:14)
[2018-09-13 18:38] LABS: Anion Gap 21 mmol/L (10-20); BUN (Urea Nitrogen) 54 mg/dL (9.8-20.1); Calc. Creatinine Clearance 22 mL/min (70-130); Calcium 7.8 mg/dL (7.8-10.44); Carbon Dioxide 18 mmol/L (23-31); Chloride 104 mmol/L (98-107); Estimated GFR-MDRD 18; Potassium 4.3 mmol/L (3.5-5.1); Sodium 139 mmol/L (136-145)
[2018-09-13 18:48] LABS: Troponin I 0.659 ng/mL (< 0.028)
[2018-09-13 18:49] LABS: Glucose Greater than 800 mg/dL (80-115)
[2018-09-13] MEDS: 1/2 NS w/KCL 20 mEq 1,000 ML IV SCH (19:42)
[2018-09-13] MEDS: Atorvastatin Calcium 20 MG TAB PO SCH (20:14)
--- NOTE | 2018-09-13 21:59 | CON ---
DATE OF CONSULTATION: 09/13/2018 HISTORY OF PRESENT ILLNESS: Ms. Kang is a 63-year-old type 1 diabetic. She was diagnosed with type 1 diabetes when she was 40 years of age. She has an insulin pump. She is poorly good about taking care of her blood sugars and checks herself 4-6 times a day. Apparently, over the last 24 hours, she has been more confused, was brought to the emergency room. Glucose was over 1200 I am told. She subsequently received at least 4 liters of fluid so far and is now in the critical care unit on an insulin drip. PAST MEDICAL HISTORY: 1. Remarkable for hypothyroidism, on replacement. 2. Hypertension. 3. History of partial thyroidectomy. 4. History of resection of a lipoma, one of her upper extremities. 5. Status post hysterectomy. 6. History of partial bowel resection. 7. History of endometriosis. PAST SURGICAL HISTORY: Surgery for bowel loop resection and reconstructive surgery. SOCIAL HISTORY: She is a . She has 3 children, two girls and a boy. The girls are at the bedside. She does not smoke or drink. ALLERGIES: Reports allergies to CODEINE and IODINE. FAMILY HISTORY: Positive for cancer. REVIEW OF SYSTEMS: Not accurately obtainable because of her confusion. She is perseverant in speech and says the same thing over and over when asked a question. PHYSICAL EXAMINATION: VITAL SIGNS: She is afebrile, heart rate is 92, respiratory rate is 23, blood pressure 97/41. Daughters tell me she is more alert than she was 3 or 4 hours ago. HEENT: Pupils are equal. Sclerae anicteric. NECK: Supple, no lymphadenopathy. LUNGS: Clear. HEART: Regular rhythm. ABDOMEN: Soft. EXTREMITIES: Without clubbing, cyanosis, or edema. NEUROLOGIC: Grossly nonfocal. LABORATORY DATA: White count 19.9, hemoglobin 10.9, platelets 282. Sodium 130 , potassium 6.1, chloride 88, bicarbonate 10, BUN 58, creatinine 3.25. Glucose was over 1200. IMPRESSION: 1. Diabetic ketoacidosis. Hyperosmolar state. It is unusual for type 1 diabetics to get this volume contracted and to hyperosmolar state this rapidly. 2. Pseudohyponatremia. 3. Acute kidney injury on top of chronic kidney disease. Her creatinine in January of this year was 1.05, so a lot of this is volume and hopefully will respond quickly to volume even though she is a 20+ year diabetic. PLAN: We will continue to follow with the other physicians. There is no way around giving her a significant amount of insulin. She is on 5 units an hour and I would simply follow her. I would like to see her glucose go from 1200 to 4-600 in the first 24 hours, but this may not be feasible given that she has diabetic ketoacidosis and has an insulin drip, this will just require some balancing. I met with family and answered all their questions. CRITICAL CARE TIME: 30 minutes. OFELIA
[2018-09-13 22:15] LABS: Anion Gap 14 mmol/L (10-20); BUN (Urea Nitrogen) 51 mg/dL (9.8-20.1); Calc. Creatinine Clearance 25 mL/min (70-130); Calcium 7.7 mg/dL (7.8-10.44); Carbon Dioxide 20 mmol/L (23-31); Chloride 109 mmol/L (98-107); Estimated GFR-MDRD 21; Potassium 4.1 mmol/L (3.5-5.1); Sodium 139 mmol/L (136-145)
[2018-09-13 22:21] LABS: Glucose 583 mg/dL (80-115)
--- NOTE | 2018-09-14 02:27 | CON ---
DATE OF CONSULTATION: 09/13/2018 REASON FOR CONSULTATION: Increased troponin in the setting of diabetic ketoacidosis. HISTORY OF PRESENT ILLNESS: Ms. Kang is a 63-year-old patient with type 1 diabetes who presented wit h diabetic ketoacidosis and renal failure. She has a long history of insulin-dependent diabetes type 1, brought in for altered mental status. No chest pain or pressure. REVIEW OF SYSTEMS: Not obtainable. She is still somewhat confused. She knows where she is, but sanz s not adequately able to give a review of systems. She does not report shortness of breath or chest pain. No cardiac history. In the emergency room, she received 4 liters of fluid and also started on insulin drip. PAST MEDICAL HISTORY: As outlined above. No cardiac history. ALLERGIES: CODEINE and IODINE. SOCIAL HISTORY: She is . She has 3 children, nonsmoker. FAMILY HISTORY: Cancer in both parents. HOME MEDICATIONS: Aspirin, Synthroid, Fosamax, calcium, Zetia, Lipitor. PHYSICAL EXAMINATION: GENERAL: This is a thin 63-year-old woman resting comfortably in no distress. VITAL SIGNS: Blood pressure 98/54, pulse is 89. NECK: Neck veins are normal. Carotid normal upstrokes. LUNGS: Clear. CARDIAC: Normal S1, normal S2. ABDOMEN: Soft, nontender. EXTREMITIES: No clubbing or cyanosis. There is no edema. SKIN: Warm and dry. LABORATORY AND X-RAY FINDINGS: EKG did not show any acute changes, sinus rhythm. The troponin level peak was 0.336. ASSESSMENT: 1. Increased troponin due to demand ischemia. 2. Diabetic ketoacidosis. Most recent blood glucose still . 3. Renal failure with a creatinine of 3.25 . PLAN: 1. Continue to treat the diabetic ketoacidosis. 2. Echocardiogram to be done tomorrow.
[2018-09-14 04:38] LABS: Hemoglobin 10.7 g/dL (12.0-16.0); Mean Corpuscular HGB CONC 32.5 g/dL (32.0-36.0); Mean Corpuscular Hemoglobin 30.5 pg (27.0-31.0); Mean Corpuscular Volume 93.6 fL (78.0-98.0); Mean Platelet Volume 9.4 fL (7.4-10.4); Platelet Count 265 thou/uL (130-400); RBC Distribution Width 12.2 % (11.5-14.5); Red Blood Cell (RBC) Count 3.53 mill/uL (4.20-5.40); White Blood Cell (WBC) Count 23.5 thou/uL (4.8-10.8)
[2018-09-14 04:54] LABS: ALT (SGPT) 29 U/L (8-55); AST (SGOT) 25 U/L (5-34); Albumin 3.1 g/dL (3.4-4.8); Alkaline Phosphatase 127 U/L (40-150); Anion Gap 13 mmol/L (10-20); BUN (Urea Nitrogen) 52 mg/dL (9.8-20.1); Bilirubin, Total 0.4 mg/dL (0.2-1.2); Calc. Creatinine Clearance 28 mL/min (70-130); Calcium 7.7 mg/dL (7.8-10.44); Carbon Dioxide 23 mmol/L (23-31); Chloride 110 mmol/L (98-107); Estimated GFR-MDRD 23; Globulin 2.3 g/dL (2.4-3.5); Glucose 264 mg/dL (80-115); Phosphorus 2.3 mg/dL (2.3-4.7); Potassium 4.5 mmol/L (3.5-5.1); Protein, Total 5.4 g/dL (6.0-8.3); Sodium 141 mmol/L (136-145)
[2018-09-14 05:07] LABS: Band 16 % (5-11); Lymphocytes 10 % (21-51); MDiff Complete? YES; Monocytes 4 % (0-10); Neutrophil 70 % (42-75)
[2018-09-14] MEDS: Levothyroxine Sodium 125 MCG TAB PO SCH (09:42)
[2018-09-14] MEDS: Heparin 5,000 UNITS/ML VIAL SC SCH ×3 (09:42→19:56)
[2018-09-14] MEDS: Ezetimibe 10 MG TAB PO SCH (09:42)
[2018-09-14] MEDS: 1/2 NS w/KCL 20 mEq 1,000 ML IV SCH ×3 (09:49→19:13)
--- NOTE | 2018-09-14 10:17 | PDOC.PN ---
- Subjective Encounter Start Date: 09/14/18 Encounter Start Time: 09:00 -: old records requested/rev pt is more alert, c/o feeling cold, no fever, - Objective Resuscitation Status: Resuscitation Status FULL:Full Resuscitation Vital Signs & Weight: Vital Signs (12 hours) Temp Pulse Ox 09/14/18 04:00 96 09/14/18 03:00 98.2 F 09/14/18 00:00 98 F 09/13/18 23:39 95 Weight Weight 147 lb 14.883 oz Most Recent Monitor Data Heart Rate from ECG 85 NIBP 99/52 NIBP BP-Mean 67 Respiration from ECG 17 SpO2 90 I&O: 09/13/18 09/14/18 09/15/18 06:59 06:59 06:59 Intake Total 5218 Output Total 955 Balance 4263 Result Diagrams: 09/14/18 03:24 09/14/18 03:24 Additional Labs: Accuchecks 09/14/18 09/14/18 09/14/18 09:32 07:26 06:42 POC Glucose 185 H 166 H 154 H 09/14/18 09/14/18 09/14/18 05:23 04:33 03:22 POC Glucose 186 H 211 H 242 H 09/14/18 09/14/18 09/13/18 02:01 01:23 23:14 POC Glucose 294 H 320 H 471 H 09/13/18 21:25 POC Glucose 530 H EKG Reviewed by me: Yes (nsr) Phys Exam - Physical Examination Constitutional: NAD HEENT: PERRLA, moist MMs, sclera anicteric Neck: no JVD, supple Respiratory: no wheezing, no rales, no rhonchi Cardiovascular: RRR, no significant murmur, no rub Gastrointestinal: soft, non-tender, no distention, positive bowel sounds Musculoskeletal: no edema, pulses present Neurological: non-focal, normal sensation, moves all 4 limbs Psychiatric: normal affect, A&O x 3 Skin: no rash, normal turgor Dx/Plan (1) Abnormal blood electrolyte level Code(s): E87.8 - OTH DISORDERS OF ELECTROLYTE AND FLUID BALANCE, NEC Status: Acute (2) Acute kidney failure Status: Acute (3) Acute metabolic encephalopathy Code(s): G93.41 - METABOLIC ENCEPHALOPATHY Status: Acute (4) Bandemia Code(s): D72.825 - BANDEMIA Status: Acute (5) DKA, type 1 Code(s): E10.10 - TYPE 1 DIABETES MELLITUS WITH KETOACIDOSIS WITHOUT COMA Status: Acute (6) Demand ischemia of myocardium Code(s): I24.8 - OTHER FORMS OF ACUTE ISCHEMIC HEART DISEASE Status: Acute (7) Hyperglycemic coma Code(s): E11.01 - TYPE 2 DIABETES MELLITUS WITH HYPEROSMOLARITY WITH COMA Status: Acute (8) Diabetes mellitus type 1, uncontrolled Code(s): E10.65 - TYPE 1 DIABETES MELLITUS WITH HYPERGLYCEMIA Status: Chronic Qualifiers: (9) Dyslipidemia Code(s): E78.5 - HYPERLIPIDEMIA, UNSPECIFIED Status: Chronic (10) Hypothyroidism Code(s): E03.9 - HYPOTHYROIDISM, UNSPECIFIED Status: Chronic Qualifiers: - Plan cont current plan of care * once pt's family bring insulin pump, then we can start that and dc insulin drip * currently DKA resolved, electrolytes are also well controlled * her blood sugar well controlled * medication reviewed as below * symptomatic treatment * will transfer to [facility] today * ambulate * pt has bandemia but no obvious clinical infection * will repeat labs tomorrow. Review of Systems - Review of Systems ENT: negative: Ear Pain, Ear Discharge, Nose Pain, Nose Discharge, Nose Congestion, Mouth Pain, Mouth Swelling, Throat Pain, Throat Swelling, Other Respiratory: negative: Cough, Dry, Shortness of Breath, Hemoptysis, SOB with Excertion, Pleuritic Pain, Sputum, Wheezing Cardiovascular: negative: chest pain, palpitations, orthopnea, paroxysmal nocturnal dyspnea, edema, light headedness, other Gastrointestinal: negative: Nausea, Vomiting, Abdominal Pain, Diarrhea, Constipation, Melena, Hematochezia, Other Genitourinary: negative: Dysuria, Frequency, Incontinence, Hematuria, Retention , Other Musculoskeletal: negative: Neck Pain, Shoulder Pain, Arm Pain, Back Pain, Hand Pain, Leg Pain, Foot Pain, Other Skin: negative: Rash, Lesions, Fortunato, Bruising, Other - Medications/Allergies Allergies/Adverse Reactions: Allergies Allergy/AdvReac Type Severity Reaction Status Date / Time codeine Allergy Verified 02/03/18 17:50 Iodinated Contrast- Oral and Allergy Verified 02/03/18 18:34 IV Dye shellfish derived Allergy Verified 03/30/18 17:52 Medications: Current Medications Acetaminophen (Tylenol) 650 mg LA Q4H PRN PRN Reason: Headache/Fever/Mild Pain (1-3) Acetaminophen (Tylenol) 650 mg PO Q4H PRN PRN Reason: Headache/Fever/Mild Pain (1-3) Artificial Tears (Tears Naturale) 2 drop EA EYE PRN PRN PRN Reason: Dry Eyes Atorvastatin Calcium (Lipitor) 20 mg PO HS [facility] Last Admin: 09/13/18 20:14 Dose: 20 mg Bisacodyl (Dulcolax) 10 mg LA DAILYPRN PRN PRN Reason: Constipation Ezetimibe (Zetia) 10 mg PO DAILY [facility] Last Admin: 09/14/18 09:42 Dose: 10 mg Guaifenesin (Robitussin Sf) 200 mg PO Q4H PRN PRN Reason: Cough Heparin Sodium (Porcine) (Heparin) 5,000 units SC TID [facility] Last Admin: 09/14/18 09:42 Dose: 5,000 units Hydralazine HCl (Apresoline) 10 mg SLOW IVP Q4H PRN PRN Reason: SBP > 180 and HR < 70 Insulin Human Regular 100 (units/ Sodium Chloride) 101 mls @ 0 mls/hr IVPB INF [facility]; Protocol Last Admin: 09/14/18 05:33 Dose: 101 mls Dextrose/Sodium Chloride (D5 1/2 Ns) 1,000 mls @ 250 mls/hr IV .Q4H PRN; Protocol PRN Reason: Step 4 of DKA Protocol Potassium Chloride/Dextrose/Sod Cl (D5 1/2 Ns W/20 Meq Kcl) 1,000 mls @ 250 mls /hr IV .Q4H PRN; Protocol PRN Reason: Step 4 of DKA Protocol Sodium Chloride (Normal Saline 0.9%) 1,000 mls @ 500 mls/hr IV .Q2H PRN; Protocol PRN Reason: Step 1 of DKA Protocol Sodium Chloride (Normal Saline 0.9%) 1,000 mls @ 1,000 mls/hr IV .Q1H PRN; Protocol PRN Reason: Step 1 of DKA Protocol Sodium Chloride (Normal Saline 0.9%) 1,000 mls @ 250 mls/hr IV .Q4H PRN; Protocol PRN Reason: SEE STEP 3 OF DKA PROTOCOL Sodium Chloride (Normal Saline 0.9%) 1,000 mls @ 500 mls/hr IV .Q2H PRN; Protocol PRN Reason: Step 2 of DKA Protocol Potassium Chloride/Sodium Chloride (Ns 0.9% W/ 20 Meq Kcl) 1,000 mls @ 500 mls/ hr IV .Q2H PRN; Protocol PRN Reason: Step 2 of DKA Protocol Potassium Chloride/Sodium Chloride (Ns 0.9% W/ 20 Meq Kcl) 1,000 mls @ 250 mls/ hr IV .Q4H PRN; Protocol PRN Reason: SEE STEP 3 OF DKA PROTOCOL Potassium Chloride 40 meq/ (Sodium Chloride) 270 mls @ 135 mls/hr IVPB ASDIR PRN PRN Reason: FOR SERUM K+ 2.5 - 3.5 Potassium Chloride 40 meq/ (Device) 100 mls @ 50 mls/hr IVPB ASDIR PRN PRN Reason: FOR SERUM K+ 2.5 - 3.5 Magnesium Sulfate 1 gm/ Sodium (Chloride) 102 mls @ 102 mls/hr IV PRN PRN PRN Reason: MAG LEVEL 1.4 - 2.0 Magnesium Sulfate 2 gm/ Device 100 mls @ 100 mls/hr IVPB ASDIR PRN PRN Reason: MAGNESIUM < 1.4 Potassium Phosphate 9 mmol/ (Sodium Chloride) 103 mls @ 25.75 mls/hr IVPB ASDIR PRN PRN Reason: Phosphate 1.0-1.8 Potassium Phosphate 12 mmol/ (Sodium Chloride) 254 mls @ 63.5 mls/hr IV ASDIR PRN PRN Reason: Serum phosphate 0.5-0.9 Potassium Phosphate 15 mmol/ (Sodium Chloride) 255 mls @ 63.75 mls/hr IV ASDIR PRN PRN Reason: Serum Phos < 0.5 Potassium Chloride/Sodium Chloride (1/2 Ns W/Kcl 20 Meq) 1,000 mls @ 150 mls/ hr IV .Q6H40M [facility] Last Admin: 09/14/18 09:49 Dose: Not Given Potassium Chloride/Dextrose/Sod Cl (D5 1/2 Ns W/20 Meq Kcl) 1,000 mls @ 150 mls /hr IV .Q6H40M PRN PRN Reason: BLOOD GLUCOSE < 250 Last Admin: 09/14/18 02:34 Dose: 1,000 mls Levothyroxine Sodium (Synthroid) 125 mcg PO 0600 [facility] Last Admin: 09/14/18 09:42 Dose: 125 mcg Magnesium Oxide (Magnesium Oxide) 400 mg PO BIDPRN PRN PRN Reason: FOR SERUM MAG 1.4 - 2.0 Magnesium Oxide (Magnesium Oxide) 800 mg PO PRN PRN PRN Reason: FOR SERUM MAG < 1.4 Mineral Oil/White Petrolatum (Eucerin Cream) 0 gm TOP BIDPRN PRN PRN Reason: Dry Skin Miscellaneous Medication (Phos-Nak) 1 pkt PO TIDPRN PRN PRN Reason: FOR PHOS LEVEL 1.0 - 1.8 Miscellaneous Medication (Phos-Nak) 2 pkt PO TIDPRN PRN PRN Reason: FOR PHOS LEVEL 0.5 - 1.0 Ccu Electrolyte (Replacement Protocol) 0 each FS PRN PRN PRN Reason: FOR ELECTROLYTE REPLACEMENT Ondansetron HCl (Zofran Odt) 4 mg SL Q6H PRN PRN Reason: Nausea/Vomiting Ondansetron HCl (Zofran) 4 mg IVP Q6H PRN PRN Reason: Nausea/Vomiting Pantoprazole Sodium (Protonix) 40 mg PO DAILY [facility] Last Admin: 09/14/18 09:42 Dose: 40 mg Potassium Chloride (K-Dur) 40 meq PO ASDIR PRN PRN Reason: FOR SERUM K+ 2.5 - 3.5 Potassium Chloride (Klor-Con) 40 meq PER TUBE ASDIR PRN PRN Reason: FOR SERUM K+ 2.5-3.5 Sodium Chloride ([place] Nasal [place] 0.65%) 0 ml EA NARE QIDPRN PRN PRN Reason: Nasal Congestion Throat Lozenges (Cepastat Lozenges) 1 alen PO Q2H PRN PRN Reason: Sore Throat
--- NOTE | 2018-09-14 13:03 | PRG ---
DATE OF SERVICE: 09/14/2018 HISTORY: Ms. Kang is doing much better today. She is alert and oriented. Her daughter is by the be dside. The patient is doing much better. No chest pain or pressure. She said she has never had curtis st pain or pressure. PHYSICAL EXAMINATION: VITAL SIGNS: Blood pressure 106/46, pulse 80s. LUNGS: Clear. CARDIAC: Normal S1, normal S2, no murmur, rub or gallop. ABDOMEN: Soft, nontender. EXTREMITIES: No edema. LABORATORY: The WBC is 23.5. Hemoglobin 10.7, the blood sugar is all the way down to 153. Sodium i s 141. CO2 is up to 23. ASSESSMENT: 1. Diabetic ketoacidosis, resolved. 2. Echocardiogram revealed normal left ventricular function, ejection fraction 60-65%. Trace to mil d tricuspid insufficiency with normal pulmonary artery pressure. 3. Slight increased troponin level due to diabetic ketoacidosis with normal echocardiogram. 4. Longstanding diabetes type 1. PLAN: 1. She will follow up with Dr. Rowland to continue risk factor modification. She tells me she is into lerant to statins. 2. We will sign off. Please call if needed.
--- NOTE | 2018-09-14 16:17 | PRG ---
DATE OF SERVICE: 09/14/2018 SUBJECTIVE: Naty Kang is back on her insulin pump. [employer] will not send supplies. I have explained to the daughter that it is imperative she had those supplies at home when she gets d ischarged. We can get by without her pump in the hospital and just continue her on an insulin drip i f we have to. Mental status is dramatically improved. OBJECTIVE: VITAL SIGNS: Stable. Blood pressure is in 90s, heart rates in 80s, respiratory rate in the 20s. LUNGS: Clear. HEART: Regular rhythm. Abdomen is soft and nontender. EXTREMITIES: Without edema. LABORATORY DATA: White count 23.5, hemoglobin 10.7, platelets 265. Sodium 141, potassium 4.5, chlor efrem 110, bicarbonate 23, BUN 52, creatinine 2.14 down from 2.86. Surprisingly, she had no proteinuri a yesterday. IMPRESSION: Hyperosmolar coma mixed with diabetic ketoacidosis. Apparently, she has had the issues with her insulin pump at home that led up to this complication. Hopefully, we will get these worked out before she is discharged. She appears to be slowly improving , but probably needs to be in the Critical Care Unit for at least another day.
--- NOTE | 2018-09-14 17:19 | EKG ---
Test Reason : Blood Pressure : / mmHG Vent. Rate : 083 BPM Atrial Rate : 083 BPM P-R Int : 112 ms QRS Dur : 072 ms QT Int : 404 ms P-R-T Axes : 073 031 061 degrees QTc Int : 474 ms Normal sinus rhythm Low voltage QRS short [place] Borderline ECG When compared with ECG of 13-SEP-2018 10:49, (Unconfirmed) Previous ECG has undetermined rhythm, needs review QRS axis Shifted right Criteria for Septal infarct are no longer Present Confirmed by DR. Sofia DE LA TORRE ([id number]) on 09/14/2018 5:19:31 PM Referred By: ERNST Confirmed By:DR. Sofia DE LA TORRE
[2018-09-14] MEDS: Atorvastatin Calcium 20 MG TAB PO SCH (19:56)
[2018-09-15 04:13] LABS: #Eosinphils 0.2 thou/uL (0.0-0.7); #Monocytes 0.9 thou/uL (0.11-0.59); #Neutrophils 12.3 thou/uL (1.40-6.50); %Basophils 0.3 % (0.0-1.0); %Eosinophils 1.1 % (0.0-10.0); %Lymphocytes 13.1 % (21.0-51.0); %Monocytes 5.6 % (0.0-10.0); Hemoglobin 10.6 g/dL (12.0-16.0); Mean Corpuscular HGB CONC 32.1 g/dL (32.0-36.0); Mean Corpuscular Hemoglobin 30.1 pg (27.0-31.0); Mean Corpuscular Volume 93.9 fL (78.0-98.0); Mean Platelet Volume 9.3 fL (7.4-10.4); Platelet Count 203 thou/uL (130-400); RBC Distribution Width 12.3 % (11.5-14.5); Red Blood Cell (RBC) Count 3.52 mill/uL (4.20-5.40); White Blood Cell (WBC) Count 15.4 thou/uL (4.8-10.8)
[2018-09-15 04:18] LABS: Hemoglobin A1c 8.1 % (4.0-6.0)
[2018-09-15 04:41] LABS: ALT (SGPT) 35 U/L (8-55); AST (SGOT) 37 U/L (5-34); Alkaline Phosphatase 129 U/L (40-150); Anion Gap 12 mmol/L (10-20); BUN (Urea Nitrogen) 37 mg/dL (9.8-20.1); Bilirubin, Total 0.4 mg/dL (0.2-1.2); Calc. Creatinine Clearance 42 mL/min (70-130); Calcium 7.9 mg/dL (7.8-10.44); Carbon Dioxide 21 mmol/L (23-31); Cardiac Risk 3.1 (Less than 4.5); Chloride 113 mmol/L (98-107); Cholesterol 147 mg/dl (< 200 Desired); Estimated GFR-MDRD 37; Globulin 2.2 g/dL (2.4-3.5); Glucose 104 mg/dL (80-115); HDL Cholesterol 48 mg/dL (>60 Neg Risk); LDL Cholesterol, Calculated 85 mg/dL; Magnesium 1.9 mg/dL (1.6-2.6); Phosphorus 1.6 mg/dL (2.3-4.7); Potassium 4.1 mmol/L (3.5-5.1); Protein, Total 5.2 g/dL (6.0-8.3); Sodium 142 mmol/L (136-145); Triglycerides 71 mg/dL (Less than 150)
--- NOTE | 2018-09-15 08:50 | PDOC.PN ---
- Subjective Encounter Start Date: 09/15/18 Encounter Start Time: 08:30 -: old records requested/rev Patient seen and examined. No new complaints. No overnight events - Objective Resuscitation Status: Resuscitation Status FULL:Full Resuscitation MAR Reviewed: Yes Vital Signs & Weight: Vital Signs (12 hours) Temp Pulse Ox 09/15/18 07:32 96 09/15/18 07:00 99.0 F 09/15/18 06:27 98 09/15/18 03:00 98.1 F 09/14/18 23:00 98.1 F Weight Weight 147 lb 14.883 oz Most Recent Monitor Data Heart Rate from ECG 73 NIBP 169/85 NIBP BP-Mean 113 Respiration from ECG 27 SpO2 97 I&O: 09/14/18 09/15/18 09/16/18 06:59 06:59 06:59 Intake Total 5218 1947.7 Output Total 955 1205 90 Balance 4263 742.7 -90 Result Diagrams: 09/15/18 03:37 09/15/18 03:37 Additional Labs: Accuchecks 09/14/18 09/14/18 09/14/18 18:37 16:32 13:16 POC Glucose 218 H 212 H 110 09/14/18 09/14/18 09/13/18 12:07 09:32 19:29 POC Glucose 153 H 185 H Greater than 550 H* 09/13/18 09/13/18 09/13/18 16:09 14:01 10:37 POC Glucose Greater than 550 H* Greater than 550 H* Greater than 550 H* EKG Reviewed by me: Yes Phys Exam - Physical Examination Constitutional: NAD HEENT: PERRLA, moist MMs, sclera anicteric Neck: no JVD, supple Respiratory: no wheezing, no rales, no rhonchi Cardiovascular: RRR, no significant murmur, no rub Gastrointestinal: soft, non-tender, no distention, positive bowel sounds Musculoskeletal: no edema, pulses present Neurological: non-focal, normal sensation, moves all 4 limbs Psychiatric: normal affect, A&O x 3 Skin: no rash, normal turgor Dx/Plan (1) Abnormal blood electrolyte level Code(s): E87.8 - OTH DISORDERS OF ELECTROLYTE AND FLUID BALANCE, NEC Status: Acute (2) Acute kidney failure Status: Resolved (3) Acute metabolic encephalopathy Code(s): G93.41 - METABOLIC ENCEPHALOPATHY Status: Resolved (4) Bandemia Code(s): D72.825 - BANDEMIA Status: Resolved (5) DKA, type 1 Code(s): E10.10 - TYPE 1 DIABETES MELLITUS WITH KETOACIDOSIS WITHOUT COMA Status: Resolved (6) Demand ischemia of myocardium Code(s): I24.8 - OTHER FORMS OF ACUTE ISCHEMIC HEART DISEASE Status: Acute (7) Hyperglycemic coma Code(s): E11.01 - TYPE 2 DIABETES MELLITUS WITH HYPEROSMOLARITY WITH COMA Status: Acute (8) Diabetes mellitus type 1, uncontrolled Code(s): E10.65 - TYPE 1 DIABETES MELLITUS WITH HYPERGLYCEMIA Status: Chronic Qualifiers: (9) Dyslipidemia Code(s): E78.5 - HYPERLIPIDEMIA, UNSPECIFIED Status: Chronic (10) Hypothyroidism Code(s): E03.9 - HYPOTHYROIDISM, UNSPECIFIED Status: Chronic Qualifiers: - Plan cont current plan of care * medication reviewed as below * symptomatic treatment * replace phosphorus * OK to discharge later today . Review of Systems - Review of Systems Eyes: negative: Pain, Vision Change, Conjunctivae Inflammation, Eyelid Inflammation, Redness, Other ENT: negative: Ear Pain, Ear Discharge, Nose Pain, Nose Discharge, Nose Congestion, Mouth Pain, Mouth Swelling, Throat Pain, Throat Swelling, Other Respiratory: negative: Cough, Dry, Shortness of Breath, Hemoptysis, SOB with Excertion, Pleuritic Pain, Sputum, Wheezing Cardiovascular: negative: chest pain, palpitations, orthopnea, paroxysmal nocturnal dyspnea, edema, light headedness, other Gastrointestinal: negative: Nausea, Vomiting, Abdominal Pain, Diarrhea, Constipation, Melena, Hematochezia, Other Genitourinary: negative: Dysuria, Frequency, Incontinence, Hematuria, Retention , Other Musculoskeletal: negative: Neck Pain, Shoulder Pain, Arm Pain, Back Pain, Hand Pain, Leg Pain, Foot Pain, Other Skin: negative: Rash, Lesions, Fortunato, Bruising, Other - Medications/Allergies Allergies/Adverse Reactions: Allergies Allergy/AdvReac Type Severity Reaction Status Date / Time codeine Allergy Verified 02/03/18 17:50 Iodinated Contrast- Oral and Allergy Verified 02/03/18 18:34 IV Dye shellfish derived Allergy Verified 02/03/18 17:52 Medications: Current Medications Acetaminophen (Tylenol) 650 mg NV Q4H PRN PRN Reason: Headache/Fever/Mild Pain (1-3) Acetaminophen (Tylenol) 650 mg PO Q4H PRN PRN Reason: Headache/Fever/Mild Pain (1-3) Artificial Tears (Tears Naturale) 2 drop EA EYE PRN PRN PRN Reason: Dry Eyes Atorvastatin Calcium (Lipitor) 20 mg PO HS [facility] Last Admin: 09/14/18 19:56 Dose: Not Given Bisacodyl (Dulcolax) 10 mg NV DAILYPRN PRN PRN Reason: Constipation Ezetimibe (Zetia) 10 mg PO DAILY [facility] Last Admin: 09/14/18 09:42 Dose: 10 mg Guaifenesin (Robitussin Sf) 200 mg PO Q4H PRN PRN Reason: Cough Heparin Sodium (Porcine) (Heparin) 5,000 units SC TID [facility] Last Admin: 09/14/18 19:56 Dose: 5,000 units Hydralazine HCl (Apresoline) 10 mg SLOW IVP Q4H PRN PRN Reason: SBP > 180 and HR < 70 Insulin Human Regular 100 (units/ Sodium Chloride) 101 mls @ 0 mls/hr IVPB INF [facility]; Protocol Last Admin: 09/14/18 05:33 Dose: 101 mls Potassium Chloride 40 meq/ (Sodium Chloride) 270 mls @ 135 mls/hr IVPB ASDIR PRN PRN Reason: FOR SERUM K+ 2.5 - 3.5 Potassium Chloride 40 meq/ (Device) 100 mls @ 50 mls/hr IVPB ASDIR PRN PRN Reason: FOR SERUM K+ 2.5 - 3.5 Magnesium Sulfate 1 gm/ Sodium (Chloride) 102 mls @ 102 mls/hr IV PRN PRN PRN Reason: MAG LEVEL 1.4 - 2.0 Magnesium Sulfate 2 gm/ Device 100 mls @ 100 mls/hr IVPB ASDIR PRN PRN Reason: MAGNESIUM < 1.4 Potassium Phosphate 9 mmol/ (Sodium Chloride) 103 mls @ 25.75 mls/hr IVPB ASDIR PRN PRN Reason: Phosphate 1.0-1.8 Potassium Phosphate 12 mmol/ (Sodium Chloride) 254 mls @ 63.5 mls/hr IV ASDIR PRN PRN Reason: Serum phosphate 0.5-0.9 Potassium Phosphate 15 mmol/ (Sodium Chloride) 255 mls @ 63.75 mls/hr IV ASDIR PRN PRN Reason: Serum Phos < 0.5 Levothyroxine Sodium (Synthroid) 125 mcg PO 0600 [facility] Last Admin: 09/14/18 09:42 Dose: 125 mcg Magnesium Oxide (Magnesium Oxide) 400 mg PO BIDPRN PRN PRN Reason: FOR SERUM MAG 1.4 - 2.0 Last Admin: 09/15/18 06:00 Dose: 400 mg Magnesium Oxide (Magnesium Oxide) 800 mg PO PRN PRN PRN Reason: FOR SERUM MAG < 1.4 Mineral Oil/White Petrolatum (Eucerin Cream) 0 gm TOP BIDPRN PRN PRN Reason: Dry Skin Miscellaneous Medication (Phos-Nak) 1 pkt PO TIDPRN PRN PRN Reason: FOR PHOS LEVEL 1.0 - 1.8 Last Admin: 09/15/18 06:00 Dose: 1 pkt Miscellaneous Medication (Phos-Nak) 2 pkt PO TIDPRN PRN PRN Reason: FOR PHOS LEVEL 0.5 - 1.0 Ccu Electrolyte (Replacement Protocol) 0 each FS PRN PRN PRN Reason: FOR ELECTROLYTE REPLACEMENT Ondansetron HCl (Zofran Odt) 4 mg SL Q6H PRN PRN Reason: Nausea/Vomiting Ondansetron HCl (Zofran) 4 mg IVP Q6H PRN PRN Reason: Nausea/Vomiting Pantoprazole Sodium (Protonix) 40 mg PO DAILY [facility] Last Admin: 09/14/18 09:42 Dose: 40 mg Potassium Chloride (K-Dur) 40 meq PO ASDIR PRN PRN Reason: FOR SERUM K+ 2.5 - 3.5 Potassium Chloride (Klor-Con) 40 meq PER TUBE ASDIR PRN PRN Reason: FOR SERUM K+ 2.5-3.5 Sodium Chloride ([place] Nasal [place] 0.65%) 0 ml EA NARE QIDPRN PRN PRN Reason: Nasal Congestion Throat Lozenges (Cepastat Lozenges) 1 alen PO Q2H PRN PRN Reason: Sore Throat
[2018-09-15] MEDS ORDERED: Sodium Phosphate 30 MMOL in Sodium Chloride 0.9% 250 ML 250 ML IVPB SCH (09:30)
[2018-09-15] MEDS: Ezetimibe 10 MG TAB PO SCH ×2 (09:35→09:57)
[2018-09-15] MEDS: Heparin 5,000 UNITS/ML VIAL SC SCH ×2 (09:36→15:09)
--- NOTE | 2018-09-15 09:41 | PRG ---
DATE OF SERVICE: 09/15/2018 SUBJECTIVE: Ms. Kang wants to go home. She has not walked yet. It would be reasonable for her to g o home if she can safely walk without falling. VITAL SIGNS: Oximetry is 96 on room air, blood pressure 169/75, heart rate 73. LUNGS: Clear. HEART: Regular rhythm. ABDOMEN: Soft and nontender. EXTREMITIES: Without clubbing, cyanosis, or edema. LABORATORY DATA: White count 15.4, hemoglobin 10.6, platelets 203. Sodium 142, potassium 4.1, chlor efrem 113, bicarbonate 21, BUN 37, creatinine 1.42. Renal function continues to improve. IMPRESSION: 1. Deep mixture of diabetic ketoacidosis and hyperosmolar state. She has had true type 1 diabetes f or over 20 years and has an insulin pump that was malfunctioning prior to her admission. 2. Acute on chronic kidney dysfunction. She probably has some diabetic renal disease, but does not have proteinuria. She was severely intravascularly volume depleted and her creatinine continues to i mprove with her volume resuscitation. 3. Electrolyte abnormalities as expected after diabetic ketoacidosis. PLAN: Continue supportive care, insulin pump is working well. She has excellent support from family at home. It would not be unreasonable for her to be discharged home with close outpatient followup on a weekly basis for a while.
[2018-09-15] MEDS ORDERED: Levothyroxine Sodium 125 MCG TAB PO SCH (09:45)
[2018-09-15] MEDS: Levothyroxine Sodium 125 MCG TAB PO SCH (09:45)
--- NOTE | 2018-09-15 14:49 | DIS ---
DATE OF ADMISSION: 09/13/2018 DATE OF DISCHARGE: 09/15/2018 PRIMARY CARE PHYSICIAN: Miquel Olmstead M.D. DISCHARGE DISPOSITION: Home. PRIMARY DISCHARGE DIAGNOSES: 1. Diabetic ketoacidosis, resolved. 2. Acute metabolic encephalopathy, corrected. 3. Abnormal blood electrolytes, corrected. 4. Demand ischemia of myocardium. 5. Hyperglycemic coma on admission. 6. Bandemia, resolved. 7. Acute kidney failure, improved. SECONDARY DISCHARGE DIAGNOSES: Diabetes type 1, hypothyroidism, hypertension and dyslipidemia. PRIMARY PROCEDURE/OPERATION: None. RADIOLOGICAL INVESTIGATION: Chest x-ray normal. Echocardiography showed normal EF. SIGNIFICANT LABORATORY DATA: Hemoglobin 10.6, creatinine 1.42. Hemoglobin A1c 8.1. Urinalysis norm al. Blood culture and urine culture negative. DISCHARGE MEDICATIONS: The patient has insulin pump for her type 1 diabetes. We started amlodipine 5 mg p.o. daily for hypertension. She will continue all her previous home medication. CONTRAINDICATIONS: None. CODE STATUS: Full code. INPATIENT CONSULTANTS: Dr. Pabon was following while in hospital. Dr. Bae was following while in hospital. TEST RESULTS PENDING ON DISCHARGE: None. ALLERGIES: CODEINE. DISCHARGE PLAN: Post hospital, the patient will follow up with primary care physician in 1 week. HOSPITAL COURSE: A 63-year-old female who was admitted by me. Please see my HPI for further detail. On admission, she was having severe diabetic ketoacidosis with metabolic encephalopathy and severe hyperglycemia. She had demand ischemia of myocardium and acute kidney failure. She had abnormal roxanna ctrolytes as well as bandemia. She was admitted to ICU. She was treated with DKA protocol orders. The next day, the patient's DKA resolved and we started her home insulin. This patient carries an in sulin pump at home, which she started using while in hospital and her blood sugar is excellently well controlled. The patient is completely asymptomatic and she is ambulatory, tolerating p.o. well. Fo r her hypertension, we started amlodipine during this admission. Rest of medication will be continue d as per previous. The patient is seen and examined at bedside today. While in hospital, Cardiology and Pulmonology was following and they cleared her for discharge. Echocardiography was normal. Overall, the patient is medically stable for discharge.
[2018-09-15 14:59] VITALS: TEMP 98.8
== END 2018-09-15 15:30 | disposition home or self-care (01) | DRG 637 ==
LOC: ERS 10:32 → CCU 12:10
PROVIDERS: ADMIT Internal Medicine; ATTEND Internal Medicine
DX: E10.11 Type 1 diabetes mellitus with ketoacidosis with coma (principal); G93.41 Metabolic encephalopathy; N17.9 Acute kidney failure, unspecified; I24.8 Other forms of acute ischemic heart disease; E87.5 Hyperkalemia; E78.5 Hyperlipidemia, unspecified; E03.9 Hypothyroidism, unspecified; I12.9 Hypertensive chronic kidney disease with stage 1 through stage 4 chronic kidney disease, or unspecified chronic kidney disease; E10.22 Type 1 diabetes mellitus with diabetic chronic kidney disease; N18.9 Chronic kidney disease, unspecified; E87.8 Other disorders of electrolyte and fluid balance, not elsewhere classified; D72.825 Bandemia; Z79.4 Long term (current) use of insulin; Z96.41 Presence of insulin pump (external) (internal)
CPT/HCPCS: 36415; 36416; 51702; 71045; 80053; 80061; 81003; 82010; 82330; 82553; 82803; 83036; 83735; 84100; 84443; 84484; 85014; 85025; 87040; 87086; 93005; 93010; 93306; 96361; 96365; 96376; J1644; J1815; J7050

== ENCOUNTER 2018-11-21 12:22 | Outpatient (CLI) | payer MEDICARE ==
--- NOTE | 2018-11-21 16:39 | MRI ---
BRAIN MRI WITH AND WITHOUT CONTRAST: 11/21/18 COMPARISON: 05/30/18 INDICATION: Followup intracranial lesion (G93.9). Reference made to prior brain MRIs which date back to the initial noncontrast brain MRI, dated 02/04 which did reveal a focus of signal abnormality at the mid to posterior left temporal lobe. Examin ation was performed for followup purposes. FINDINGS: There remain very focal region of predominantly subcortically located FLAIR and T2 hyperintense sig nal abnormality at the mid to posterior left temporal lobe with relative sparing of the overlying cor marianne. There remains no discernible, pathologic intra-axial enhancement. Scattered foci of mild periventricular signal abnormality do persists. There is a subtle focus of sub cortical abnormality peripherally, located within the posterior left frontal lobe. No hemorrhagic dara ceptibility is evident. No mass effect, midline shift or ventriculomegaly. No acute territorial infarction. The skull base fl ow voids are patent. Agdaagux intraocular lenses are absent. IMPRESSION: Stable nonspecific focal signal alteration at the mid posterior left temporal lobe without enhancemen t. Diagnosis of exclusion remains low grade neoplasm. There are additional multifocal nonspecific signal abnormalities also present throughout the bilatera l periventricular white matter, as well as areas of subcortical white matter. Recommend continued imaging follow up. POS: TPC
== END 2018-11-21 12:23 | disposition home or self-care (01) ==
LOC: SCSMRI 12:22
PROVIDERS: ATTEND Neurological Surgery
DX: G93.9 Disorder of brain, unspecified (principal)
CPT/HCPCS: 70553; 82565

== ENCOUNTER 2019-10-12 08:36 | Inpatient (IN) | payer MEDICARE ==
[2019-10-12] MEDS ORDERED: Ketorolac Tromethamine 30 MG/ML VIAL ONE (09:45)
[2019-10-12] MEDS ORDERED: Cyclobenzaprine 10 MG TAB ONE (09:45)
[2019-10-12 10:16] LABS: #Basophils 0.1 thou/uL (0.0-0.2); #Eosinphils 0.2 thou/uL (0.0-0.7); #Lymphocytes 1.1 thou/uL (1.20-3.40); #Monocytes 0.8 thou/uL (0.11-0.59); #Neutrophils 8.6 thou/uL (1.40-6.50); %Basophils 0.6 % (0.0-1.0); %Eosinophils 1.7 % (0.0-10.0); %Lymphocytes 10.4 % (21.0-51.0); %Monocytes 7.1 % (0.0-10.0); %Neutrophils 80.3 % (42.0-75.0); Hemoglobin 13.5 g/dL (12.0-16.0); Mean Corpuscular HGB CONC 33.2 g/dL (32.0-36.0); Mean Corpuscular Hemoglobin 29.9 pg (27.0-31.0); Mean Corpuscular Volume 90.1 fL (78.0-98.0); Platelet Count 220 thou/uL (130-400); RBC Distribution Width 13.3 % (11.5-14.5); Red Blood Cell (RBC) Count 4.52 mill/uL (4.20-5.40); White Blood Cell (WBC) Count 10.7 thou/uL (4.8-10.8)
[2019-10-12] MEDS ORDERED: Morphine 4 MG/ML VIAL ONE ×2 (10:29→14:02)
[2019-10-12 10:42] LABS: ALT (SGPT) 13 U/L (8-55); AST (SGOT) 20 U/L (5-34); Albumin 3.8 g/dL (3.4-4.8); Alkaline Phosphatase 82 U/L (40-110); Anion Gap 11 mmol/L (10-20); BUN (Urea Nitrogen) 19 mg/dL (9.8-20.1); Bilirubin, Total 0.8 mg/dL (0.2-1.2); Calc. Creatinine Clearance 0 mL/min (70-130); Calcium 9.3 mg/dL (7.8-10.44); Carbon Dioxide 27 mmol/L (23-31); Chloride 104 mmol/L (98-107); Estimated GFR-MDRD 41; Globulin 2.7 g/dL (2.4-3.5); Glucose 180 mg/dL (80-115); Potassium 4.2 mmol/L (3.5-5.1); Protein, Total 6.5 g/dL (6.0-8.3); Sodium 138 mmol/L (136-145)
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
[2019-10-12 14:10] LABS: Magnesium 1.8 mg/dL (1.6-2.6); Phosphorus 2.8 mg/dL (2.3-4.7)
[2019-10-12] MEDS ORDERED: Ondansetron PF 4 MG/2 ML Vial IVP PRN ×3 (14:19→17:45)
[2019-10-12] MEDS ORDERED: Ondansetron ODT 4 MG TAB PO PRN ×3 (14:19→17:45)
[2019-10-12] MEDS ORDERED: Morphine 4 MG/ML VIAL SLOW IVP PRN ×3 (14:19→17:45)
[2019-10-12] MEDS ORDERED: hydrALAZINE 20 MG/ML VIAL SLOW IVP PRN ×3 (14:19→17:44)
[2019-10-12] MEDS ORDERED: Dextrose 50% Abboject 50 ML SYRINGE SLOW IVP PRN ×3 (14:19→17:43)
[2019-10-12] MEDS ORDERED: Dextrose 5% in Water 1,000 ML IV PRN ×3 (14:19→17:43)
[2019-10-12] MEDS ORDERED: Morphine 2 MG/ML SYRINGE SLOW IVP PRN ×3 (14:19→17:44)
[2019-10-12] MEDS ORDERED: Sodium Chloride 0.9% 1,000 ML IV SCH ×2 (14:30→16:00)
[2019-10-12] MEDS ORDERED: traMADol HCl 50 MG TAB PO PRN ×5 (15:15→21:52)
[2019-10-12] MEDS ORDERED: traMADol HCl 50 MG TAB PO SCH ×3 (15:15→18:00)
[2019-10-12 15:58] VITALS: BMI 20.9
[2019-10-12] MEDS: Acetaminophen 500 MG TAB PO SCH ×2 (17:52→23:28)
[2019-10-12] MEDS: Sodium Chloride 0.9% 1,000 ML IV SCH ×2 (17:59→21:17)
[2019-10-12] MEDS ORDERED: Acetaminophen 500 MG TAB PO SCH ×2 (18:00)
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
[2019-10-12] MEDS ORDERED: Famotidine/PF 20 mg/2ml Vial SLOW IVP SCH ×2 (21:00)
[2019-10-12] MEDS: Famotidine/PF 20 mg/2ml Vial SLOW IVP SCH (21:15)
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
[2019-10-13] MEDS ORDERED: Levothyroxine Sodium 125 MCG TAB PO SCH (06:00)
[2019-10-13] MEDS ORDERED: Levothyroxine Sodium 112 MCG TAB PO SCH (06:00)
[2019-10-13] MEDS: Levothyroxine Sodium 25 MCG TAB PO SCH (06:05)
[2019-10-13] MEDS: Levothyroxine Sodium 112 MCG TAB PO SCH (06:05)
[2019-10-13] MEDS: Acetaminophen 500 MG TAB PO SCH ×4 (06:05→23:45)
[2019-10-13 08:04] LABS: #Eosinphils 0.3 thou/uL (0.0-0.7); #Lymphocytes 0.8 thou/uL (1.20-3.40); #Monocytes 0.7 thou/uL (0.11-0.59); #Neutrophils 5.7 thou/uL (1.40-6.50); %Basophils 0.6 % (0.0-1.0); %Eosinophils 3.8 % (0.0-10.0); %Lymphocytes 10.8 % (21.0-51.0); %Monocytes 9.1 % (0.0-10.0); %Neutrophils 75.7 % (42.0-75.0); Mean Corpuscular HGB CONC 32.1 g/dL (32.0-36.0); Mean Corpuscular Hemoglobin 29.9 pg (27.0-31.0); Mean Corpuscular Volume 93.1 fL (78.0-98.0); Mean Platelet Volume 9.2 fL (7.4-10.4); Platelet Count 176 thou/uL (130-400); RBC Distribution Width 13.5 % (11.5-14.5); Red Blood Cell (RBC) Count 4.01 mill/uL (4.20-5.40); White Blood Cell (WBC) Count 7.5 thou/uL (4.8-10.8)
[2019-10-13] MEDS: Morphine 2 MG/ML SYRINGE SLOW IVP PRN ×2 (08:24→11:54)
[2019-10-13 08:27] LABS: Anion Gap 11 mmol/L (10-20); BUN (Urea Nitrogen) 19 mg/dL (9.8-20.1); Calc. Creatinine Clearance 49 mL/min (70-130); Calcium 7.9 mg/dL (7.8-10.44); Carbon Dioxide 22 mmol/L (23-31); Chloride 108 mmol/L (98-107); Estimated GFR-MDRD 49; Glucose 160 mg/dL (80-115); Magnesium 1.9 mg/dL (1.6-2.6); Potassium 4.5 mmol/L (3.5-5.1); Sodium 136 mmol/L (136-145)
[2019-10-13] MEDS: Bupropion 150 MG XL TAB PO SCH (09:41)
[2019-10-13] MEDS: FLUoxetine HCl 20 MG CAP PO SCH (09:42)
[2019-10-13] MEDS: Famotidine/PF 20 mg/2ml Vial SLOW IVP SCH ×2 (09:45→20:19)
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
[2019-10-13] MEDS ORDERED: Dextrose 50 % In Water 50 ML SYRINGE ONE (12:13)
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
[2019-10-13] MEDS: Enoxaparin Sodium 30 MG/0.3 ML SYRINGE SC SCH (19:29)
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
[2019-10-14] MEDS: Levothyroxine Sodium 112 MCG TAB PO SCH (05:21)
[2019-10-14] MEDS: Acetaminophen 500 MG TAB PO SCH ×2 (05:21→12:31)
[2019-10-14] MEDS: Levothyroxine Sodium 25 MCG TAB PO SCH (05:21)
[2019-10-14] MEDS: FLUoxetine HCl 20 MG CAP PO SCH (08:10)
[2019-10-14] MEDS: Bupropion 150 MG XL TAB PO SCH (08:10)
[2019-10-14] MEDS: Famotidine/PF 20 mg/2ml Vial SLOW IVP SCH (08:10)
[2019-10-14] MEDS: Enoxaparin Sodium 30 MG/0.3 ML SYRINGE SC SCH (08:12)
[2019-10-14] MEDS ORDERED: Losartan 25 MG TAB PO SCH (09:00)
[2019-10-14 09:33] VITALS: BP 113/74; TEMP 98.4
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
[2019-10-14] MEDS ORDERED: Milk Of Magnesia 30 ML UDCUP PO SCH (15:15)
[2019-10-15] MEDS ORDERED: Calcium Carbonate + Vit D 1 TAB PO SCH (09:00)
[2019-10-15] MEDS ORDERED: metFORMIN 500 MG TAB PO SCH (09:00)
[2019-10-15] MEDS ORDERED: Alendronate Sodium 70 mg Tablet PO SCH (09:00)
[2019-10-15] MEDS ORDERED: Calcium Carbonate 600 MG TAB PO SCH (09:00)
[2019-10-15] MEDS ORDERED: Aspirin 81 mg Enteric Coated Tablet PO SCH (09:00)
== END 2019-10-14 16:00 | DRG 552 ==
LOC: ERS 08:36 → T4-B 15:53 → SURG A 10-13 13:23
PROVIDERS: ADMIT Surgery; ATTEND Surgery
DX: S32.012A Unstable burst fracture of first lumbar vertebra, initial encounter for closed fracture (principal); S06.0X9A Concussion with loss of consciousness of unspecified duration, initial encounter; E10.649 Type 1 diabetes mellitus with hypoglycemia without coma; E06.3 Autoimmune thyroiditis; N18.9 Chronic kidney disease, unspecified; E10.22 Type 1 diabetes mellitus with diabetic chronic kidney disease; Z96.41 Presence of insulin pump (external) (internal); V47.5XXA Car driver injured in collision with fixed or stationary object in traffic accident, initial encounter; Z79.899 Other long term (current) drug therapy; Z79.890 Hormone replacement therapy; Z79.84 Long term (current) use of oral hypoglycemic drugs; Z79.82 Long term (current) use of aspirin; Z79.4 Long term (current) use of insulin
CPT/HCPCS: 36415; 36416; 70450; 71250; 72125; 72141; 74177; 80048; 83690; 83735; 84100; 85025; J1885; J2270; L0120; L0639; S0028

== ENCOUNTER 2019-11-15 14:45 | Outpatient (CLI) | payer MEDICARE ==
--- NOTE | 2019-11-15 16:40 | RAD ---
LUMBAR SPINE TWO VIEWS 11/15/19 HISTORY: Compression fracture. FINDINGS: There is a burst fracture of the L1 vertebral body with approximately 50% loss of vertebral body heig ht, which appears similar when compared to a CT examination performed 10/12/19. Multilevel degenerativ e change noted within the facet joints of the lumbar spine, particularly inferiorly. IMPRESSION: L1 burst fracture with approximately 50% loss of vertebral body height. This does not appear signific antly changed when compared to a CT performed 10/12/19. No additional fractures noted. POS: SADE
== END 2019-11-15 14:46 | disposition home or self-care (01) ==
LOC: TBSIIMAG 14:45
PROVIDERS: ATTEND Neurological Surgery
DX: S32.011A Stable burst fracture of first lumbar vertebra, initial encounter for closed fracture (principal)
CPT/HCPCS: 72100

== ENCOUNTER 2019-12-28 14:19 | Outpatient (CLI) | payer MEDICARE ==
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
== END 2019-12-28 14:20 | disposition home or self-care (01) ==
LOC: TBSIIMAG 14:19
PROVIDERS: ATTEND Neurological Surgery
DX: S32.011D Stable burst fracture of first lumbar vertebra, subsequent encounter for fracture with routine healing (principal)
CPT/HCPCS: 72100

== ENCOUNTER 2020-01-23 08:01 | Outpatient (CLI) | payer MEDICARE ==
--- NOTE | 2020-01-23 08:23 | RAD ---
EXAM: 3 views of the lumbosacral spine HISTORY: Low back pain from L1 compression fracture COMPARISON: 12/28/2019 FINDINGS: 3 views of the lumbosacral spine shows a stable compression fracture of the L1 vertebral harish dy with approximately 75% height loss. The vertebral bodies demonstrate normal alignment without subluxation. Posterior facet arthrosis is seen in the lower lumbosacral spine. The sacroiliac joints are unremarkable. IMPRESSION: Stable L1 compression fracture
== END 2020-01-23 08:02 | disposition home or self-care (01) ==
LOC: TBSIIMAG 08:01
PROVIDERS: ATTEND Neurological Surgery
DX: S22.008A Other fracture of unspecified thoracic vertebra, initial encounter for closed fracture (principal); S32.019A Unspecified fracture of first lumbar vertebra, initial encounter for closed fracture
CPT/HCPCS: 72100

== ENCOUNTER 2020-02-19 09:17 | Outpatient (CLI) | payer MEDICARE ==
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
== END 2020-02-19 09:18 | disposition home or self-care (01) ==
LOC: BICRAD 09:17
PROVIDERS: ATTEND Neurological Surgery
DX: S22.009A Unspecified fracture of unspecified thoracic vertebra, initial encounter for closed fracture (principal); S32.009A Unspecified fracture of unspecified lumbar vertebra, initial encounter for closed fracture; M43.8X6 Other specified deforming dorsopathies, lumbar region
CPT/HCPCS: 72100

== ENCOUNTER 2021-08-31 11:45 | Outpatient (CLI) | payer MEDICARE ==
[2021-08-31 12:35] LABS: Mean Corpuscular HGB CONC 32.6 g/dL (32.0-36.0); Mean Corpuscular Hemoglobin 28.5 pg (27.0-33.0); Mean Corpuscular Volume 87.5 fl (81.6-98.3); Mean Platelet Volume 11.2 fl (7.4-10.4); Platelet Count 220 10x3/uL (150-450); RBC Distribution Width 14.7 % (11.5-14.5); Red Blood Cell (RBC) Count 4.56 10x6/uL (3.90-5.03); White Blood Cell (WBC) Count 10.2 10x3/uL (3.5-10.5)
[2021-08-31 12:52] LABS: Anion Gap 14 mmol/L (10-20); BUN (Urea Nitrogen) 25 mg/dL (9.8-20.1); Calc. Creatinine Clearance 0 mL/min (70-130); Calcium 8.7 mg/dL (7.8-10.44); Carbon Dioxide 23 mmol/L (23-31); Chloride 108 mmol/L (98-107); Glucose 231 mg/dL (80-115); Potassium 5.1 mmol/L (3.5-5.1); Sodium 140 mmol/L (136-145)
[2021-08-31 23:44] LABS: SARS-CoV-2 PCR by NAA Not Detected (NotDetected)
== END 2021-08-31 11:46 | disposition home or self-care (01) ==
LOC: LABBT 11:45
PROVIDERS: ATTEND Orthopaedic Surgery
DX: Z01.818 Encounter for other preprocedural examination (principal); Z20.822 Contact with and (suspected) exposure to COVID-19
CPT/HCPCS: 80048; 85027; 93005; U0003; U0005; 93010

== ENCOUNTER 2021-09-01 06:57 | Day surgery (SDC) | payer OTHER, MEDICARE ==
[2021-08-31 16:36] VITALS: BMI 26.9
[2021-09-01] MEDS ORDERED: Fentanyl 100 MCG/2 ML VIAL ONE (08:02)
[2021-09-01] MEDS ORDERED: Midazolam HCl 2 mg/2 ml Vial ONE (08:02)
[2021-09-01] MEDS ORDERED: Bupivacaine HCl 0.5%/Epinephrine 1:200,000/PF 30 ml Vial ONE (08:45)
[2021-09-01] MEDS ORDERED: Insulin Regular 300 UNITS/3 ML VIAL ONE (09:09)
[2021-09-01] MEDS ORDERED: PROPOFOL 200 MG/20 ML VIAL ONE (09:32)
[2021-09-01] MEDS ORDERED: Ketorolac Tromethamine 30 MG/ML VIAL ONE (09:32)
[2021-09-01] MEDS ORDERED: Ondansetron PF 4 MG/2 ML Vial ONE (09:32)
== END 2021-09-01 12:25 | disposition home or self-care (01) ==
LOC: SDC 06:57
PROVIDERS: ATTEND Orthopaedic Surgery
PROC: 0PSJ04Z Reposition Left Radius with Internal Fixation Device, Open Approach (ICD-10-PCS; principal; 2021-09-01)
PROC: 3E0T3BZ Introduction of Anesthetic Agent into Peripheral Nerves and Plexi, Percutaneous Approach (ICD-10-PCS; 2021-09-01)
DX: S52.532A Colles' fracture of left radius, initial encounter for closed fracture (principal); E10.9 Type 1 diabetes mellitus without complications; E89.0 Postprocedural hypothyroidism; E78.5 Hyperlipidemia, unspecified; Z79.82 Long term (current) use of aspirin; Z79.83 Long term (current) use of bisphosphonates; Z79.899 Other long term (current) drug therapy; Z88.5 Allergy status to narcotic agent; Z91.013 Allergy to seafood; Z91.041 Radiographic dye allergy status; Z90.49 Acquired absence of other specified parts of digestive tract; W17.2XXA Fall into hole, initial encounter; Y92.89 Other specified places as the place of occurrence of the external cause
CPT/HCPCS: 36416; 76000; C1713; J1815; J1885; J2250; J2405; J2704; J3010

== ENCOUNTER 2022-07-19 08:33 | Day surgery (SDC) | payer MEDICARE ==
[2022-07-19] MEDS ORDERED: Denosumab 60 MG/ML SQ SCH (09:00)
[2022-07-19 09:37] VITALS: BP 143/67; TEMP 98
== END 2022-07-19 09:58 | disposition home or self-care (01) ==
LOC: ONC/OP 08:33
PROVIDERS: ATTEND Internal Medicine Endocrinology, Diabetes & Metabolism
DX: M81.8 Other osteoporosis without current pathological fracture (principal); Z88.5 Allergy status to narcotic agent; Z91.013 Allergy to seafood; Z91.041 Radiographic dye allergy status
CPT/HCPCS: 96372; J0897

== ENCOUNTER 2024-02-03 08:56 | Day surgery (SDC) | payer MEDICARE ==
[2024-02-03] MEDS: Denosumab 60 MG/ML SQ SCH (09:19)
[2024-02-03 09:23] VITALS: BP 117/65; TEMP 98.1
== END 2024-02-03 09:29 | disposition home or self-care (01) ==
LOC: ONC/OP 08:56
PROVIDERS: ATTEND Internal Medicine Endocrinology, Diabetes & Metabolism
DX: M81.8 Other osteoporosis without current pathological fracture (principal); Z88.5 Allergy status to narcotic agent; Z91.013 Allergy to seafood; Z91.041 Radiographic dye allergy status
CPT/HCPCS: 96372; J0897

== ENCOUNTER 2024-08-03 08:44 | Day surgery (SDC) | payer MEDICARE ==
[2024-08-03 08:59] VITALS: BP 130/58; TEMP 97.6
[2024-08-03] MEDS: Denosumab 60 MG/ML SQ SCH (09:01)
== END 2024-08-03 09:15 | disposition home or self-care (01) ==
LOC: ONC/OP 08:44
PROVIDERS: ATTEND Internal Medicine Endocrinology, Diabetes & Metabolism
DX: M81.8 Other osteoporosis without current pathological fracture (principal); Z88.5 Allergy status to narcotic agent; Z91.013 Allergy to seafood; Z91.041 Radiographic dye allergy status
CPT/HCPCS: 96372; J0897

== ENCOUNTER 2025-07-24 08:30 | Day surgery (SDC) | payer MEDICARE ==
[2025-07-24 09:23] VITALS: BP 120/55; TEMP 97.7
== END 2025-07-24 09:38 | disposition home or self-care (01) ==
LOC: ONC/OP 08:30
PROVIDERS: ATTEND Internal Medicine Endocrinology, Diabetes & Metabolism
DX: M81.8 Other osteoporosis without current pathological fracture (principal); Z88.5 Allergy status to narcotic agent; Z91.041 Radiographic dye allergy status; Z91.013 Allergy to seafood
CPT/HCPCS: 96401; J0897